=== PATIENT | male | born 1935 | race Caucasian/White ===

== ENCOUNTER 2016-10-22 17:05 | Inpatient (IN) | payer OTHER, MEDICARE ==
[~2016-10-22] VITALS: Ht 182.9 cm; Wt 83.7 kg
[~2016-10-22 17:05] MED LIST: ATORVASTATIN CA40 MG PO; CILOSTAZOL100 MG PO; CILOXAN 0.50 GTT/1 B OPH; DIGOX0.125 MG PO; DONEPEZIL HYDRO10 MG PO; FISH OIL1000 MG; FLU VACCINE 0.0.5 ML IM; LOSARTAN POTAS100 MG PO; METOPROLOL SUC100 MG PO; TAMSULOSIN HYD0.4 MG PO; VITAMIN D1000 IU PO; XARELTO20 MG PO
--- NOTE | 2016-10-22 17:20 | NUR ---
80 YEAR OLD MALE BIBA FROM HOME WITH . PER PT HAS DIAGNOSIS OF ALZHEIMER AND DEMENTIA, BASELINE NONVERBAL AND NONAMBULATORY. PT REPORTS PT HAS BEEN INCREASINGLY ALTERED AND VISITING NURSE SUSPECTS UTI. PT ALSO REPORTS FREQUENT FALLS AND SHE DOESN'T FEEL PT IS SAFE AT HOME ANYMORE. PT AWAITING EVALUATION. EKG ORDERED D/T HX OF A. FIB AND PACEMAKER.
[2016-10-22 18:01] LABS: ABSOLUTE BASOPHIL COUNT 0.1 /CUMM (0.0-0.2); ABSOLUTE EOSINOPHIL COUNT 0.1 /CUMM (0.0-0.7); ABSOLUTE GRANULOCYTE CT 3.9 /CUMM (1.4-6.5); ABSOLUTE LYMPH COUNT 3.4 /CUMM (1.2-3.4); ABSOLUTE MONOCYTE COUNT 0.4 /CUMM (0.10-0.60); BASOPHIL % 0.7 % (0.0-2.0); EOSINOPHIL % 1.6 % (0-5); GRANULOCYTE % 49.5 % (42.2-75.2); HEMATOCRIT 39.5 % (42-52); MEAN CORPUSCULAR HGB 31.5 PG (27.0-31.0); MEAN CORPUSCULAR HGB CONC 33.6 G/DL (33.0-37.0); MEAN PLATELET VOLUME 7.3 FL (7.4-10.4); PLATELET COUNT 203 /CUMM (130-400); RBC DISTRIBUTION WIDTH 13.8 % (11.5-14.5)
--- NOTE | 2016-10-22 18:18 | NUR ---
LABS OBTAINED AND SENT (LAV,SST,EXTRA BLUE AND EXTRA RIDDLE.) PT CHANGED AND STRAIGHT CATHED, URINE SENT. EKG COMPLETED. PT REPOSITIONED FOR COMFORT.
--- NOTE | 2016-10-22 18:57 | CT SCAN REPORT ---
EXAMINATION: CT HEAD WITHOUT CONTRAST CLINICAL INFORMATION: Acute mental status change. COMPARISON: CT exams of the brain done 05/12/2014 and 08/10/2010. TECHNIQUE: Contiguous axial imaging was performed from the skull base to vertex without intravenous administration of contrast. DLP: 601 mGy-cm FINDINGS: There is no evidence of acute intracranial hemorrhage or territorial infarction. No abnormal mass effect or midline shift is seen. Hernandez to white matter differentiation is well preserved. No extra-axial fluid collections are identified. Enlarged ventricles are concordant with the deepened sulci consistent with cerebral atrophy as previously described. There is also deep white matter hypoattenuation in this is attributed to microvascular disease. Left lens has been extracted. There is no abnormal attenuation within the brain parenchyma. The osseous structures and soft tissues are normal. The mastoid air cells and visualized portions of the paranasal sinuses are well aerated. IMPRESSION: No acute intracranial pathology. Cerebral atrophy. Small vessel disease as before.
--- NOTE | 2016-10-22 19:01 | RADIOLOGY REPORT ---
EXAMINATION: XR PORTABLE CHEST CLINICAL INFORMATION: Altered mental status COMPARISON: CT from 02/22/2015. Radiograph report 05/12/2014. TECHNIQUE: Portable AP view of the chest was obtained. FINDINGS: There is a right chest wall single-lead pacer with lead overlying the right ventricle. There is persistent elevation of the left hemidiaphragm. Patchy left basilar opacity is noted. The right lung is clear. No pneumothorax. The cardiomediastinal silhouette is unchanged, with a calcified aorta. No acute osseous abnormality. IMPRESSION: Elevated left hemidiaphragm with associated left basilar opacity. This may be chronic. The lungs are otherwise clear.
--- NOTE | 2016-10-22 19:14 | ED GENERAL ADULT ---
History of Present Illness General Chief Complaint: Altered Mental Status Stated Complaint: BIBA WITH ALTERED MENTAL STATUS Source: family, old records Exam Limitations: clinical condition, dementia Vital Signs & Intake/Output Vital Signs & Intake/Output Vital Signs Date Time Temp Pulse Resp B/P Pulse O2 O2 Flow FiO2 Ox Delivery Rate 10/22 2017 98.0 83 18 136/90 98 10/22 1809 95 Room Air Room Air 10/22 1716 97.4 69 18 125/94 95 Room Air Room Air Allergies Coded Allergies: NO KNOWN ALLERGIES (10/22/16) Reconcile Medications Atorvastatin Calcium 40 MG TABLET 1 TAB PO DAILY CHOLESTEROL (Reported) Cilostazol 100 MG TABLET 1 TAB PO BID BLOOD FLOW (Reported) Digoxin 125 MCG TABLET 1 TAB PO DAILY HEART (Reported) Donepezil HCl 10 MG TABLET 1 TAB PO DAILY MEMORY (Reported) Losartan Potassium 50 MG TABLET 1 TAB PO DAILY HEART/BP (Reported) Metoprolol Succinate 100 MG TAB.ER.24H 1 TAB PO DAILY HEART/BP (Reported) Rivaroxaban (Xarelto) 20 MG TABLET 1 TAB PO DAILY BLOOD THINNER (Reported) with food Tamsulosin HCl 0.4 MG CAP.ER.24H 1 CAP PO DAILY PROSTATE (Reported) Triage Note: 80 YEAR OLD MALE BIBA FROM HOME WITH . PER PT HAS DIAGNOSIS OF ALZHEIMER AND DEMENTIA, BASELINE NONVERBAL AND NONAMBULATORY. PT REPORTS PT HAS BEEN INCREASINGLY ALTERED AND VISITING NURSE SUSPECTS UTI. PT ALSO REPORTS FREQUENT FALLS AND SHE DOESN'T FEEL PT IS SAFE AT HOME ANYMORE. PT AWAITING EVALUATION. EKG ORDERED D/T HX OF A. FIB AND PACEMAKER. Triage Nurses Notes Reviewed? yes HPI: Patient lives at home with his who is his primary caregiver. Patient has Alzheimer's dementia. Over the past 2 weeks there has been an acute decline in his mental status. Per the past 2 days he would not even sit up in bed to attempt to get out of bed. He has had decreased appetite. Very dark and foul odorous. There have been no fevers. There has been no vomiting. His has not noticed any coughing. Patient was brought in for evaluation. Patient is not able to offer any history. Past History Travel History Traveled to [place] past 21 day No Medical History Any Pertinent Medical History? see below for history Neurological: Alzheimer's disease, dementia Cardiovascular: AFIB, hypertension, PACEMAKER Surgical History Surgical History: non-contributory Psychosocial History Who do you live with Spouse What is your primary language Nauruan Tobacco Use: Never used Family History Hx Contributory? No Review of Systems Review of Systems Constitutional: Reports: see HPI. Genitourinary: Reports: see HPI. Physical Exam Physical Exam General Appearance: well developed/nourished, awake, moderate distress Head: atraumatic, normal appearance Eyes: Bilateral: PERRL, EOMI. Ears, Nose, Throat: normal pharynx, normal ENT inspection, DRY MUCOSA Neck: normal inspection, supple, full range of motion Respiratory: normal breath sounds, chest non-tender, no respiratory distress, lungs clear Cardiovascular: regular rate/rhythm, normal peripheral pulses Gastrointestinal: normal bowel sounds, soft, non-tender, no organomegaly Back: normal inspection, normal range of motion Extremities: normal inspection, normal capillary refill, normal range of motion, no edema Neurologic/Psych: WILL OPEN HIS EYES TO COMMAND BUT DOES NOT FOLLOW ANY OTHER COMMANDS. Skin: intact, normal color, warm/dry Lymphatic: no anterior cervical justin Core Measures ACS in differential dx? Yes ASA ordered for poss ACS? Yes-ordered CVA/TIA Diagnosis: No Severe Sepsis Present: No Septic Shock Present: No Progress Differential Diagnoses I considered the following diagnoses in my evaluation of the patient: [UTI, pneumonia, electrolyte abnormality, AMI] Plan of Care: Orders Procedure Date/time Status Regular Diet 10/23 B Active Saline Lock 10/22 2117 Active Misc Message 10/22 2117 Active ED Holding Orders 10/22 2117 Active Vital Signs 10/22 2117 Active Activity/Ambulation 10/22 2117 Active Code Status 10/22 2117 Active Patient Data 10/22 2036 Active Admit to inpatient 10/22 2025 Active Add-on Test (ER Only) 10/22 1858 Active Add-on Test (ER Only) 10/22 1857 Active Saline Lock 10/22 1825 Active CULTURE,URINE 10/22 1825 Active URINE DRUG SCREEN FOR ER ONLY 10/22 182 Complete Intake & Output 10/22 1807 Active THYROID STIMULATING HORMONE 10/22 1752 Complete TROPONIN LEVEL 10/22 1752 Complete T3 UPTAKE (THYROXINE BIND CAP) 10/22 1752 Complete THYROXINE 10/22 1752 Complete ETHANOL 10/22 1752 Complete Straight Cath 10/22 1722 Active URINALYSIS 10/22 1721 Complete COMPREHENSIVE METABOLIC PANEL 10/22 1721 Complete CBC WITHOUT DIFFERENTIAL 10/22 172 Complete EKG 10/22 172 Active Current Medications Sig/Darnell Start time Last Medication Dose Stop Time Status Admin Sodium Chloride 1,000 ML .Q10H 10/22 2130 AC (Normal Saline 0.9%) Laboratory Tests 10/22/16 182: Troponin I Cancelled, TSH Cancelled, Thyroxine (T4) Cancelled, Thyroxine Binding Indx Cancelled, Serum Alcohol Cancelled 10/22/16 181: Urine Opiates Screen < 100.00, Methadone Screen < 40, Barbiturate Screen < 60, Ur Phencyclidine Scrn < 6.00, Amphetamines Screen < 100, U Benzodiazepines Scrn < 85, Urine Cocaine Screen < 50, Urine Cannabis Screen < 5.00, Urinalysis LIGHT H, Urine Color ABNER, Urine Clarity HAZY H, Urine pH 6.0, Ur Specific Harcourt 1.010, Urine Protein TRACE H, Urine Ketones NEG, Urine Nitrite NEG, Urine Bilirubin NEG, Urine Urobilinogen 1.0, Ur Leukocyte Esterase NEG, Ur Microscopic SEDIMENT EXAMINED, Urine RBC 25-50 H, Urine Bacteria MOD H, Urine Hemoglobin LARGE H, Urine Glucose NEG 10/22/16 175: Anion Gap 7, Estimated GFR > 60, BUN/Creatinine Ratio 22.5, Glucose 97, Calcium 9.3, Total Bilirubin 0.8, AST 19, ALT 34, Alkaline Phosphatase 85, Troponin I 0.11 *H, Total Protein 6.0 L, Albumin 3.4 L, Globulin 2.6, Albumin/Globulin Ratio 1.3, TSH 2.110, Thyroxine (T4) 6.0, Thyroxine Binding Indx 39.2, CBC w Diff NO MAN DIFF REQ, RBC 4.20 L, MCV 94.0, MCH 31.5 H, RDW 13.8, MPV 7.3 L, Gran % 49.5, Lymphocytes % 42.7, Monocytes % 5.5, Eosinophils % 1.6, Basophils % 0.7, Absolute Granulocytes 3.9, Absolute Lymphocytes 3.4, Absolute Monocytes 0.4 , Absolute Eosinophils 0.1, Absolute Basophils 0.1, PUBS MCHC 33.6, Serum Alcohol < 10.0 Microbiology 10/23 1815 URINE ROUT: Urine Culture - RECD Diagnostic Imaging: Viewed by Me: Radiology Read, CT Scan. Discussed w/RAD: Radiology Read, CT Scan. Radiology Impression: PATIENT: KARL BETH PRESENT AGE: 80 PATIENT ACCOUNT NO: [id number] : 37 LOCATION: [facility] ORDERING PHYSICIAN: AMANDA BOLANOS MD SERVICE DATE: 10/22/16 EXAM TYPE: CAT - CT HEAD WO IV CONTRAST EXAMINATION: CT HEAD WITHOUT CONTRAST CLINICAL INFORMATION: Acute mental status change. COMPARISON: CT exams of the brain done 05/12/2014 and 08/10/2010. TECHNIQUE: Contiguous axial imaging was performed from the skull base to vertex without intravenous administration of contrast. DLP: 601 mGy-cm FINDINGS: There is no evidence of acute intracranial hemorrhage or territorial infarction. No abnormal mass effect or midline shift is seen. Hernandez to white matter differentiation is well preserved. No extra-axial fluid collections are identified. Enlarged ventricles are concordant with the deepened sulci consistent with cerebral atrophy as previously described. There is also deep white matter hypoattenuation in this is attributed to microvascular disease. Left lens has been extracted. There is no abnormal attenuation within the brain parenchyma. The osseous structures and soft tissues are normal. The mastoid air cells and visualized portions of the paranasal sinuses are well aerated. IMPRESSION: No acute intracranial pathology. Cerebral atrophy. Small vessel disease as before. DICTATED BY: JOSE CURIEL MD DATE/TIME DICTATED: 10/22/161847 EDUCATION PROFESSIONAL:ARIK DATE/TIME TRANSCRIBED:10/22/161847 CONFIDENTIAL, DO NOT COPY WITHOUT APPROPRIATE AUTHORIZATION. <Electronically signed in Other Vendor System> SIGNED BY: JOSE CURIEL MD 10/22/16 277 CXR Impression: PATIENT: KARL BETH PRESENT AGE: 80 PATIENT ACCOUNT NO: [id number] : 37 LOCATION: [facility] ORDERING PHYSICIAN: AMANDA BOLANOS MD SERVICE DATE: 10/22/16 EXAM TYPE: RAD - XRY-PORTABLE CHEST XRAY EXAMINATION: XR PORTABLE CHEST CLINICAL INFORMATION: Altered mental status COMPARISON: CT from 02/22/2015. Radiograph report 2013. TECHNIQUE: Portable AP view of the chest was obtained. FINDINGS: There is a right chest wall single-lead pacer with lead overlying the right ventricle. There is persistent elevation of the left hemidiaphragm. Patchy left basilar opacity is noted. The right lung is clear. No pneumothorax. The cardiomediastinal silhouette is unchanged, with a calcified aorta. No acute osseous abnormality. IMPRESSION: Elevated left hemidiaphragm with associated left basilar opacity. This may be chronic. The lungs are otherwise clear. DICTATED BY: ADELE HOGAN MD DATE/TIME DICTATED:10/22/161852 EDUCATION PROFESSIONAL:ARIK DATE/TIME TRANSCRIBED:10/22/161852 CONFIDENTIAL, DO NOT COPY WITHOUT APPROPRIATE AUTHORIZATION. <Electronically signed in Other Vendor System> SIGNED BY: EDISON BAY,ADELE 10/22/16 190 Initial ED EKG: pacemaker rhythm Prior EKG: unchanged Rhythm Strip: PACED Departure Departure Disposition: STILL A PATIENT Condition: Guarded Clinical Impression Primary Impression: Elevated troponin Secondary Impressions: Acute delirium, Hypokalemia Referrals: ESTHELA BAY,MARCIA Pierre (PCP/Family) Departure Forms: Customer Survey General Discharge Information Admission Note Spoke With: ELEUTERIO REYES MD Documentation of Exam: Documentation of any treatments & extenuating circumstances including Concerns Regarding Discharge (functional status, medication knowledge or non-compliance, living conditions, etc.) that warrant an admission rather than observation: [ Telemetry monitoring with serial enzymes, cardiology consultation, PT evaluation ] Critical Care Note Critical Care Note Critical Care Time: mins: (30 MIN)
--- NOTE | 2016-10-22 19:48 | NUR ---
DR. CARTER TO BEDSIDE TO DISCUSS RESULTS AND POC.
--- NOTE | 2016-10-22 19:51 | NUR ---
CRITICAL TEST RESULTS [id number] KIRITKARL 80 M TESTS AND RESULTS: 0.11 Results received and read back by: DAVIDA MILLAN Results received date and time: 10/22/161950 The following provider was notified of the results, and read the results back: DR. CARTER Notified date and time: 10/22/16 at 1951
--- NOTE | 2016-10-22 20:19 | NUR ---
IV ACCESS ESTABLISHED BY THIS RN LH #[id number], WRAPPED WITH KERLEX.
[2016-10-22] MEDS ORDERED: XARELTO20 M2 PO (20:23)
[2016-10-22] MEDS ORDERED: DIGOXIN125 MCG PO (20:23)
[2016-10-22] MEDS ORDERED: CILOSTAZOL100 M1 PO (20:23)
[2016-10-22] MEDS ORDERED: LOSARTAN POTASS50 M1 PO (20:23)
[2016-10-22] MEDS ORDERED: ATORVASTATIN CA40 M1 PO (20:24)
[2016-10-22] MEDS ORDERED: DONEPEZIL HCL10 M1 PO (20:24)
[2016-10-22] MEDS ORDERED: METOPROLOL SUC100 M2 PO (20:24)
[2016-10-22] MEDS ORDERED: TAMSULOSIN HCL0.4 M1 PO (20:24)
--- NOTE | 2016-10-22 20:42 | NUR ---
PT MEDICATED WITH NS LITER #1 INFUSING, 40MEG KLOR PO, AND 325MG ASA CRUSHED IN SPOONFUL OF [place]KE PER EMAR. FAMILY AT BEDSIDE, FEEDING PT.
--- NOTE | 2016-10-22 21:14 | NUR ---
HOUSE STAFF TO BEDSIDE TO EVALUATE PT.
--- NOTE | 2016-10-22 21:27 | NUR ---
PT GOING TO ROOM [id number]
--- NOTE | 2016-10-22 21:34 | History & Physical ---
AZUCENA RUIZ MD 10/22/162132: General Information and HPI MD Statement: I have seen and personally examined KARL AMBRIZ and documented this H&P. The patient is a 80 year old M who presented with a patient stated chief complaint of altered mental status. Source of Information: family, old records Exam Limitations: dementia, poor historian History of Present Illness: Mr. Ambriz is a pleasantly demented 80 year old [place] male with PMH HTN, HLD, atrial fibrillation s/p PPM implantation in 2007, CAD s/p stenting, claudication secondary to peripheral vascular disease and Alzheimer's dementia ( non-verbal at baseline) who was brought in to [facility] via ambulance due to increased altered mental status. Due to clinical condition and Alzheimer's dementia, history is obtained from his and [id number] who are at bedside. According to his , Mr. Ambriz has been mumbling less, more altered than normal and has been staring off into space instead of participating in visual tracking. This is associated with three falls over the last fifteen days without head trauma. Patient is noted to have been leaning more to the right side of his body and does not lift his right leg to move. There is also a report of darkening of patient's urine to a brown color, concerning his visiting nurse for hematuria; he has not decreased his oral intake of fluids over this time frame. Family denies any fever, chills, recent URI, cough, vomiting, coughing with eating or drooping of the face. They did admit to chronic syncope which has been going on for about 1 year, where Karl will be sitting and suddenly pass out. At that time, shaking and talking to him will not wake him up and after about 15 -20 minutes, he will return to his baseline with no issues. They also believe that his pacemaker has been firing frequently as Karl has random jerks throughout the day. Social history is significant for prior tobacco abuse, though patient quit about 35 years ago. There is no report of alcohol or illicit drug use. Patient sees Dr. Chin as his PCP who manages his Alzheimer's and Dr. Waller as his assisted living executive director. Past surgical history is significant for pacemaker placement on by Dr. Jacobo. He has also had left leg surgery for his PVD. He requires help in all his ADLs and IADLs. Allergies/Medications Allergies: Coded Allergies: NO KNOWN ALLERGIES (10/22/16) Home Med list Atorvastatin Calcium 40 MG TABLET 1 TAB PO DAILY CHOLESTEROL (Reported) Cilostazol 100 MG TABLET 1 TAB PO BID BLOOD FLOW (Reported) Digoxin 125 MCG TABLET 1 TAB PO DAILY HEART (Reported) Donepezil HCl 10 MG TABLET 1 TAB PO DAILY MEMORY (Reported) Losartan Potassium 50 MG TABLET 1 TAB PO DAILY HEART/BP (Reported) Metoprolol Succinate 100 MG TAB.ER.24H 1 TAB PO DAILY HEART/BP (Reported) Rivaroxaban (Xarelto) 20 MG TABLET 1 TAB PO DAILY BLOOD THINNER (Reported) with food Tamsulosin HCl 0.4 MG CAP.ER.24H 1 CAP PO DAILY PROSTATE (Reported) Compliance With Home Meds: UNKNOWN Past History Travel History [facility] past [facility] day No Medical History Neurological: Alzheimer's disease, dementia Cardiovascular: AFIB, hypertension, PACEMAKER Surgical History Surgical History: non-contributory Past Family/Social History Psychosocial History Where do you live? Home Who Do You Live With? spouse Services at Home: Nursing Primary Language: [place]ian Smoking Status: Former Smoker ETOH Use: denies use Illicit Drug Use: denies illicit drug use Living Will? yes Functional Ability ADLs Needs Assist: dressing, eating, toileting, bathing. Ambulation: non-ambulatory IADLs Needs Assist: shopping, housework, finances, food prep, telephone, transportation, medication admin. Sexual History Sexually Active No Employment History Employment Retired Review of Systems Review of Systems Constitutional: Reports: malaise, weakness. Denies: chills, diaphoresis, fever. EENTM: Denies: visual changes (Baseline macular degeneration), nasal congestion, epistaxis. Cardiovascular: Reports: see HPI. Respiratory: Denies: cough, hemoptysis, wheezing. GI: Denies: bloating, vomiting. Genitourinary: Reports: hematuria (Possible). Skin: Denies: rash. Neurological/Psychological: Reports: confusion, dementia, unable to move lower ext (Right leg), weakness. Denies: petit mal seizures, tremors, unable to move upper ext. Hematologic/Endocrine: Denies: bleeding. Immunologic/Allergic: Denies: splenectomy. All Other Systems: Reviewed and Negative Exam & Diagnostic Data Last 24 Hrs of Vital Signs/I&O Vital Signs Date Time Temp Pulse Resp B/P Pulse O2 O2 Flow FiO2 Ox Delivery Rate 10/22 2145 97.2 65 16 128/78 97 Room Air 10/22 2017 98.0 83 18 136/90 98 10/22 1809 95 Room Air Room Air 10/22 1716 97.4 69 18 125/94 95 Room Air Room Air Physical Exam General Appearance No Acute Distress, AAOx0, non-verbal, unable to follow commands Skin No Significant Lesion HEENT Atraumatic, PERRLA, EOMI, Mucous Membr. moist/pink Neck Supple, +2 Carotid Pulse wo Bruit Lymphatic Cervical nl Cardiovascular Regular Rate, Normal S1, Normal S2 Lungs Normal Air Movement Abdomen Normal Bowel Sounds, Soft, No tenderness, specifically no suprapubic tenderness Neurological Normal Tone, Unable to participate in neurological exam Extremities No Clubbing, No Cyanosis, Normal Pulses, No Tenderness/Swelling, minimal bilateral LE edema Vascular Pulses Symmetrical Last 24 Hrs of Labs/Onel: Laboratory Tests 10/22/16 182: Troponin I Cancelled, TSH Cancelled, Thyroxine (T4) Cancelled, Thyroxine Binding Indx Cancelled, Serum Alcohol Cancelled 10/22/16 181: Urine Opiates Screen < 100.00, Methadone Screen < 40, Barbiturate Screen < 60, Ur Phencyclidine Scrn < 6.00, Amphetamines Screen < 100, U Benzodiazepines Scrn < 85, Urine Cocaine Screen < 50, Urine Cannabis Screen < 5.00, Urinalysis LIGHT H, Urine Color ABNER, Urine Clarity HAZY H, Urine pH 6.0, Ur Specific [place] 1.010, Urine Protein TRACE H, Urine Ketones NEG, Urine Nitrite NEG, Urine Bilirubin NEG, Urine Urobilinogen 1.0, Ur Leukocyte Esterase NEG, Ur Microscopic SEDIMENT EXAMINED, Urine RBC 25-50 H, Urine Bacteria MOD H, Urine Hemoglobin LARGE H, Urine Glucose NEG 10/22/16 1752: Anion Gap 7, Estimated GFR > 60, BUN/Creatinine Ratio 22.5, Glucose 97, Calcium 9.3, Total Bilirubin 0.8, AST 19, ALT 34, Alkaline Phosphatase 85, Troponin I 0.11 *H, Total Protein 6.0 L, Albumin 3.4 L, Globulin 2.6, Albumin/Globulin Ratio 1.3, TSH 2.110, Thyroxine (T4) 6.0, Thyroxine Binding Indx 39.2, CBC w Diff NO MAN DIFF REQ, RBC 4.20 L, MCV 94.0, MCH 31.5 H, RDW 13.8, MPV 7.3 L, Gran % 49.5, Lymphocytes % 42.7, Monocytes % 5.5, Eosinophils % 1.6, Basophils % 0.7, Absolute Granulocytes 3.9, Absolute Lymphocytes 3.4, Absolute Monocytes 0.4 , Absolute Eosinophils 0.1, Absolute Basophils 0.1, PUBS MCHC 33.6, Serum Alcohol < 10.0 Microbiology 10/23 1815 URINE ROUT: Urine Culture - RECD Diagnostic Data EKG Results Ventricular paced rhythm, HR 71 CXR Results IMPRESSION: Elevated left hemidiaphragm with associated left basilar opacity. This may be chronic. The lungs are otherwise clear. Other Results Head CT: IMPRESSION: No acute intracranial pathology. Cerebral atrophy. Small vessel disease as before. Assessment/Plan Assessment: Mr. Ambriz is a pleasantly demented 80 year old [place] male with PMH HTN, HLD, atrial fibrillation s/p PPM implantation in 2007, CAD s/p stenting, claudication secondary to peripheral vascular disease and Alzheimer's dementia ( non-verbal at baseline) who was brought in to [facility] via ambulance due to increased altered mental status. Several complaints on presentation include altered mental status, frequent falls over the last 15 days without head trauma, dark urine, right-sided preference with decreased mobility of the right lower extremity and history of syncopal spells that last 15-20 minutes. In the ED: Vital signs showed T 97.4, HR 69, RR 18, BP 125/94 and O2 saturation of 95% on room air. Labs were significant for normocytic anemia to 13.3/39.5, K 3.3, Cl 108, troponin 0.11 and normal thyroid panel. Utox was negative. UA showed hazy clarity, trace protein, 25-50 RBCs, moderate bacteria and large Hgb. CXR showed elevated left hemidiaphragm with associated left basilar opacity. This may be chronic. The lungs are otherwise clear. Head CT showed no acute intracranial pathology. Cerebral atrophy. Small vessel disease as before. Patient is admitted to the telemetry floor and the following is the management: 1. Elevated troponins in the setting of atrial fibrillation with PPM * Likely NSTEMI vs supply-demand mismatch * Continuous telemetry monitoring * Trend troponins/EKGs, next at 12 AM and 6 AM * Cardio consult in AM with Dr. Waller, patient's assisted living executive director * Resume all home cardiac medications, including Xarelto 20 mg PO daily, losartan 50 mg PO daily, digozin 0.125 mg PO daily and lipitor 40 mg PO daily * Hold off on echo as patient may have had recent echocardiogram, discuss with cardiology need for echo * F/U proBNP 2. Dark urine with blood * UTI vs nephrolithiasis vs BPH * UA showed 25-50 RBCs, large hgb * Will obtain CT abdomen without IV contrast to look for stones or other causes of heamturia * Hold off on hadley and traumatic straight caths * Monitor urine output * Continue flomax 0.4 mg PO daily 3. Syncope * Family reported this has been occuring for about 1 year * DDx includes arrhythmia vs orthostatic hypotention * Patient had an EEG 12/22/15 that showed no epileptiform activity (performed due to syncopal events as per family) * Continuous telemetry monitoring * Orthostatics (laying and sitting, patient cannot stand) * Discuss with cardio need for echocardiogram * PT eval for possible placement 4. Hypokalemia * K 3.3 on admission without overt EKG changes * Repleted with 40 meq PO x 1 Klor * Follow up repeat BEP in AM 5. HTN, HLD, CAD s/p stenting * Monitor vital signs Q shift * Continue beta yemi, losartan and lipitor daily 6. PVD * Continue cilostazol 100 mg PO BID 7. Alzheimer's * Continue donepezil 10 mg PO daily DNR/DNI Diet: Regular Mild pain pathway DVTP: Xarelto As Ranked By This Provider Problem List: 1. Dementia 2. Elevated troponin 3. Hypokalemia 4. Pacemaker 5. Syncope 6. Hematuria Core Measures/Miscellaneous Acute Coronary Syndrome ACS Diagnosis: Yes ASA W/I 24hr of admit Yes Beta-Yemi W/I 24hrs Yes LDL assessed W/I 24 hrs Yes Currently on Statin Yes Cerebrovascular Accident CVA/TIA Diagnosis: No Congestive Heart Failure CHF Diagnosis: No Venous Thromboembolism VTE Risk Factors: Acute medical illness, Age > 40, Immobility, paresis [facility] prophylaxis d/t: No contraindications No VTE Pharm Prophylaxis d/t: No contraindications VTE Diagnosis: No VTE Type: NONE VTE Confirmed by (Test): NONE Severe Sepsis Severe Sepsis Present: No Septic Shock Septic Shock Present: No Miscellaneous Documentation Attending Case Discussed With: ELEUTERIO REYES MD Primary Care Physician: MARCIA CHIN MD Patient sees these Specialists Dr. Waller, cardiology Level of Patient Care: Telemetry JEREMIAS SWARTZ MD 10/22/16 2224: Resident Review Statement Resident Statement: examined this patient, discussed with international trade compliance manager, agreed with international trade compliance manager Other Findings: 80 Y/O M with a PMH of CAD s/p stents, Afib on Digoxin and Xarelto, HTN, HLD, PVD who presents to the ED with c/o increase in AMS. The patient is nonverbal and nonambulatory at baseline. Most of the history was obtained from the , who was present at bedside during the interview. She reports that a visiting nurse came to see the patient today and found him to be more altered than at baseline. Also while changing his diaper, it was found that he had dark brown urine. The visiting nurse stated that he might be having a urinary tract infection causing alteration of mental status and therefore needed to be sent to the hospital. states that he has been getting increasingly weak over the last 2 weeks. Previously she was able to move him around with the help of her son. But now, since her son is also sick, she is unable to handle this by herself. He fell around 2 weeks ago, when he rolled over from his bed and fell to the floor. Since then, his resports that he has been more weak and lethargic than usual. Previously, he was able to follow commands, which he is now unable to do. She reports that around 3 months ago, he was having episodes where he would be sitting at the dining table and pass out for a period of 15 minutes or so before coming to spontaneously. This has been evaluated in the past when EEG was normal. s also noted that he is now leaning more towards his right when he walks and is unable to move his right foot. [id number], was also present at bedside, stated that she felt that his pacemaker was discharging because she would see him jerking multiple times a day. No reported fevers, chills, upper respiratory infection, cough. Vitals: 97.498.0/ 6983/ 18/ 125/20179/90/ 9598 % Exam: orientation cannot be assessed, BCTA,no murmurs heard, abdomen soft nontender, no pedal edema noted Labs: potassium: 3.3, troponin: 0.11, U tox negative, urinalysis shows large hemoglobin, moderate bacteria, negative leukocyte esterase and nitrite. Imaging: Chest x-ray: Left basilar obesity (? Chronic), otherwise clear Head CT: Negative intracranial pathology. Cerebral Atrophy. Small vessel disease. Problem list: * elevated troponin secondary to discharge from pacemaker versus demand supply mismatch secondary to underlying infection * hypokalemia * hematuria secondary to UTI versus nephrolithiasis * syncope secondary to arrhythmias versus orthostatic hypotension * CAD status post stenting * Atrial fibrillation on digoxin and Xarelto * Hypertension * Hyperlipidemia * Peripheral vascular disease currently on Cilostazol Plan: * Admit to telemetry * Trend troponins and EKG * Repeat BEP in a.m. for potassium levels * cardiology consult for possible interrogation of pacemaker in a.m.. * Please determine the need for an echo in the morning (patient sees Dr. Waller is an outpatient and may have records). * CAT scan of the abdomen and pelvis to r/o nephrolithiasis vs BPH causing hematuria * continue all other home medications * DVT prophylaxis: Xarelto * Pain pathway: Tylenol when necessary * CODE STATUS: DNR/DNI. The does not want any aggressive measures including pressors. ELEUTERIO REYES 10/22/16 2342: Attending MD Review Statement Attending Statement Attending MD Statement: examined this patient, discuss w/resident/PA/[employer], agreed w/resident/PA/[employer], discussed with family, reviewed EMR data (avail), reviewed images, amended to note Attending Assessment/Plan: C: AMS pmh: CAD S/p stent ,A fib s/p Pacemaker, HTN, HLD, PVD s/p surgery, Alzheimer's dementia Patient was brought in by Family through EMS for worsening mentation. Patient lives at home with his , she is his primary caregiver along with Son's help. Over the past 2 weeks, family has noticed acute decline in his mental status, less responsive, slipped from bed and had a fall 15 days back, gait changes leaning towards right side, right lower extremity weakness, on and off leg swellings, intermittent jerky movements. At baseline patient is nonverbal, legally blind with macular degeneration. Before October 10 , patient was following some instructions, ambulating with the help of walker with 's help. In last 2 days he would not even sit up in bed to attempt to get out of bed, decreased appetite. Family also noticed very dark and foul odorous urine in the diaper, 3 times. At times patient appeared in pain while passing urine. Family denied fever, chills, nausea, vomiting, ROS limited because patient does not provide details. When patient's condition started deteriorating 15 days back, they requested for a home health nurse, who was visiting them today and found dark- colored urine, suggesting to go to ER for possible urine infection causing altered mental status. Of note patient has been getting multiple episodes of passing out over the years, last episode was 3 months back. Patient needs assistance in feeding, eats full diet, no choking. Vitals: Afebrile, pulse in 60s, RR, BP, O2 saturation in acceptable range. On examination: Patient does not follow instructions, nonverbal, lying in position, no pedal edema, peripheral pulses perfusion normal. No JVD, neck supple, no lymphadenopathy, mucosa dry, pupils equal and reactive bilaterally. Abdomen: Soft, NT, ND, bowel sounds present. RS: clear to auscultate bilaterally. CVS: Irregular. No pressure ulcers. Neuro exam not possible as patient does not follow any instructions. No obvious skin rashes or inflammations. Labs: CBC unremarkable, potassium 3.3 otherwise BMP, LFT unremarkable troponin 0.11, TSH 2.11, urine hazy, trace protein, 50 RBC, moderate bacteria, large hemoglobin. U tox unremarkable. Imaging CT head: No acute intracranial pathology. Cerebral atrophy. Small vessel disease as before. CXR: Elevated left hemidiaphragm with associated left basilar opacity. This may be chronic. The lungs are otherwise clear. EKG paced rhythm A and P #1 encephalopathy: delirium versus worsening of dementia. Patient afebrile, no leukocytosis, vitals stable, no evidence of infection currently, pain is another possibility which may be precipitating delirium, obtain urine culture, CT abdomen without contrast to rule out any calculus, gentle hydration, stool softeners and bowel regimen. Obtain proBNP, digoxin level, CPK. #2 elevated troponin: Patient has dementia, does not complain of chest pain, patient's family has been noticing intermittent jerky movements as is getting ? shocked, previous note mentions about ventricular single-lead pacer, no history of defibrillator at this point. Admit on telemetry, continuous telemetry monitoring, cardiology consult, serial EKG, trend troponin, ?interrogation of device, ? 2-D echo, according to assisted living executive director. Continue aspirin and beta yemi continue Xeralto #3 multiple syncopal episodes in the past: Last episode 3 months back, patient was evaluated with EEG in the past, again telemetry monitoring will benefit, ? 2 -D echo. Obtain orthostatic vitals, may need to readjust medications #4 dark colored urine at home, patient had hemoglobin and RBC the urine sample in ER, may have been related to trauma with straight cath but patient was having symptoms at home. Patient is on anticoagulation. Obtain CT abdomen and pelvis to rule out any calculus or any other pathology. Urine culture. #5 continue all his medications for CAD, HTN, A. fib, HLD, PVD, Alzheimer's with metoprolol, digoxin, losartan, tamsulosin, cilostazol, Xeralto, donepezil, atorvastatin. #6 PT evaluation, case management consult for rehabilitation placement. Discussed goals of care with family, is realistic about worsening condition , wants to pursue investigations if beneficial for improvement, wants to make him more comfortable, DNR, DNI
--- NOTE | 2016-10-22 21:50 | NUR ---
REPORT CALLED TO FAIZAN OLIVEIRA. DISTRIBUTION CALLED FOR PT TRANSPORT.
[2016-10-22 22:40] VITALS: BP 158/80
--- NOTE | 2016-10-22 23:45 | Admission Certification ---
Admission Certification Certification Statement - As attending physician, I certify that at the time of - admission, based on clinical presentation, severity of - symptoms, need for further diagnostic testing and - therapeutic interventions, and risk of adverse outcomes - without in-hospital treatment, in my clinical assessment, - this patient requires an acute hospital stay for a minimum - of two nights or longer. I have also considered psychsocial - factors such as support system, advanced age, financial - issues, cognitive issues, and failed out-patient treatments, - past re-admission history, safety of patient, and lack of - compliance as applicable. Specific rationale supporting this admission is: Encephalopathy, elevated troponins, hematuria
--- NOTE | 2016-10-23 00:47 | CT SCAN REPORT ---
EXAMINATION: CT ABDOMEN AND PELVIS WITHOUT CONTRAST CLINICAL INFORMATION: Benign prostatic hypertrophy versus nephrolithiasis causing hematuria. Hematuria and pain. COMPARISON: No relevant prior imaging available. TECHNIQUE: Multidetector volumetric imaging was performed from the superior aspect of the liver through the pubic symphysis. Sagittal and coronal reformatted images were obtained on the technologist's workstation. DLP: 401.96 mGy-cm FINDINGS: LUNG BASES: There is scarring and/or atelectasis within both lung bases and a small left pleural effusion. The right atrium is enlarged. No pericardial effusion. LIVER, GALLBLADDER, AND BILIARY TREE: There is a small well marginated benign-appearing cystic lesion within the left lobe of liver that measures 1.5 cm in diameter. The unenhanced liver is otherwise grossly unremarkable. The gallbladder is contracted. There is no evidence of intrahepatic or extrahepatic biliary ductal dilatation. PANCREAS: Unremarkable. SPLEEN: Unremarkable. ADRENAL GLANDS: Unremarkable. KIDNEYS AND URETERS: There is mild left hydroureteronephrosis. There is no distal obstructing mass or calcification. No nephrolithiasis. No worrisome perinephric inflammation or collection. Kidneys are grossly symmetric in size. BLADDER: The urinary bladder has a trabeculated surface consistent with pseudodiverticulosis associated with prostatic hypertrophy. The possibility of a urothelial mass cannot be excluded on the basis of this examination due to irregular thickening of the urinary bladder wall. GASTROINTESTINAL TRACT: The stomach and small bowel are unremarkable. The colon and appendix are normal. A moderate volume of stool fills rectum. There is no free intraperitoneal air or fluid. No abnormal inflammatory changes within the mesenteric or retroperitoneal fat. ABDOMINAL WALL: The abdominal wall is grossly intact with exception of a fat-containing left inguinal hernia. LYMPH NODES: There are no pathologically enlarged mesenteric or retroperitoneal lymph nodes. VASCULAR: There is diffuse atheromatous calcification involving the infrarenal abdominal aorta and iliac vessels. There is a fusiform aneurysm of the infrarenal abdominal aorta that measures 3.8 cm in diameter. The unenhanced inferior vena cava is unremarkable. PELVIC VISCERA: The prostate gland is grossly enlarged with a transverse diameter of 6.8 cm. OSSEOUS STRUCTURES: There is no worrisome lytic or blastic osseous lesion. There is multilevel degenerative spondylosis of the lumbar spine. No evidence of acute fracture or subluxation. IMPRESSION: There is asymmetric hydroureteronephrosis of the left kidney with no clear evidence of a distal obstructing mass or stone. The urinary bladder is diffusely thickened and demonstrates a trabeculated appearance consistent with pseudodiverticulosis in the setting of prostatic hypertrophy. The possibility of a urothelial mass cannot be exclude on the basis of this examination. 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 Limited visualization of the intrathoracic structures demonstrates right atrial enlargement.
--- NOTE | 2016-10-23 07:09 | PN- Housestaff ---
LILLIAN BAY,HIRO 10/23/16 0708: Subjective Follow-up For: Altered mental status Dark Urine Tele-Events Since Last Visit: Single pacing 76-81 bpm without any overnight events. Subjective: I saw and examined the patient today morning He is speechless, upon sternal rubbing opened his eyes, starring at the hinkle. Not responding to verbal/painful commands. Review of Systems Constitutional: Reports: see HPI. Objective Last 24 Hrs of Vital Signs/I&O Vital Signs Date Time Temp Pulse Resp B/P Pulse O2 O2 Flow FiO2 Ox Delivery Rate 10/22 2240 97.6 66 20 158/80 98 Room Air 10/22 2145 97.2 65 16 128/78 97 Room Air 10/22 2017 98.0 83 18 136/90 98 10/22 1809 95 Room Air Room Air 10/22 1716 97.4 69 18 125/94 95 Room Air Room Air Intake & Output 10/23 0800 10/23 0000 10/22 1600 Intake Total Output Total 1000 Balance -1000 Output, Urine 1000 Physical Exam General Appearance: Alert, not oriented Skin: No Rashes, No Breakdown HEENT: Atraumatic, PERRLA, EOMI Neck: Supple Cardiovascular: Normal S1, Normal S2, No Murmurs Lungs: Clear to Auscultation, Normal Air Movement Abdomen: Normal Bowel Sounds, Soft, No Tenderness Extremities: No Clubbing, No Cyanosis, No Edema Current Medications: Current Medications Sig/Darnell Start time Last Medication Dose Route Stop Time Status Admin Acetaminophen 650 MG Q6P PRN 10/225 AC PO Aspirin 0 .STK-MED ONE 10/22 2032 DC PO Aspirin 325 MG ONCE ONE 10/22 2029 DC 10/22 PO 10/22 Atorvastatin Calcium 40 MG DAILY 10/22 2156 AC PO Cilostazol 100 MG BID 10/22 2200 AC PO Digoxin 0.125 MG 10/23 1700 AC PO Donepezil HCl 10 MG DAILY 10/23 1000 AC PO Losartan Potassium 50 MG DAILY 10/23 1000 AC PO Metoprolol Succinate 100 MG DAILY 10/23 1000 AC PO Polyethylene Glycol 17 GM DAILY 10/23 1000 AC PO Potassium Chloride 0 .STK-MED ONE 10/22 2032 DC PO Potassium Chloride 40 MEQ ONCE ONE 10/23 1999 DC 10/22 PO 10/22 Rivaroxaban 20 MG 1700 10/23 1700 AC PO Senna/Docusate Sodium 2 TAB DAILY 10/23 1000 AC PO Sodium Chloride 1,000 ML Q13H 10/23 0030 AC 10/23 IV 0030 Sodium Chloride 1,000 ML .Q10H 10/22 2130 DC 10/22 IV 2255 Sodium Chloride 1,000 ML BOLUS ONE 10/22 1930 DC 10/22 IV 10/22 Tamsulosin HCl 0.4 MG DAILY 10/23 1000 AC PO Assessment/Plan Assessment: Patient is a 80 year old [place] male with PMH HTN, HLD, atrial fibrillation s/p PPM implantation in 2007, CAD s/p stenting, claudication secondary to peripheral vascular disease and Alzheimer's dementia (non-verbal at baseline) who was brought in to [place] via ambulance due to increased altered mental status. Several complaints on presentation include altered mental status, frequent falls over the last 15 days without head trauma, dark urine, right-sided preference with decreased mobility of the right lower extremity and history of syncopal spells that last 15-20 minutes. ED Course: Vital signs showed T 97.4, HR 69, RR 18, BP 125/94 and O2 saturation of 95% on room air. Labs were significant for normocytic anemia to 13.3/39.5, K 3.3, Cl 108, troponin 0.11 and normal thyroid panel. Utox was negative. UA showed hazy clarity, trace protein, 25-50 RBCs, moderate bacteria and large Hgb. CXR showed elevated left hemidiaphragm with associated left basilar opacity. This may be chronic. The lungs are otherwise clear. Head CT showed no acute intracranial pathology. Cerebral atrophy. Small vessel disease as before. Patient is admitted to the telemetry floor and the following is the management: Progressive deconditioning with encephalopathy * Patient condition is gradually worsening which was more prononunced in the past 15days, being noncommunicative. * His work up is so far negative, appaerently his general condition is declining. * His is more realistic about the condtion, and if patient condition declines opting to choose STR placement. Elevated troponins in the setting of atrial fibrillation with PPM * Likely NSTEMI vs supply-demand mismatch * Continuous telemetry monitoring * Trend troponins -- 0.11-->0.11-->0.10 with no significant changes in EKG * Cardio consult with Dr. Waller, patient's terminal supervisor * Resume all home cardiac medications, including Xarelto 20 mg PO daily, losartan 50 mg PO daily, digozin 0.125 mg PO daily and lipitor 40 mg PO daily * Hold off on echo as patient may have had recent echocardiogram, discuss with cardiology need for echo * proBNP is 3020 Dark urine with blood * UTI vs nephrolithiasis vs BPH * UA showed 25-50 RBCs, large hgb * CT abdomen & pelvis without IV constrast demonstrated asymmetric hydroureteronephrosis of the left kidney with no clear evidence of a distal obstructing mass or stone. The urinary bladder is diffusely thickened and demonstrates a trabeculated appearance consistent with pseudodiverticulosis in the setting of prostatic hypertrophy. * Patient had clots in his urine overnight, today morning he had bright red blood in urine (still on xarelto). No significant changes in Hb. * Urology consult placed. * Continue flomax 0.4 mg PO daily Syncope * Family reported this has been occuring for about 1 year * Possible arrhythmias. * Patient had an EEG 12/22/15 that showed no epileptiform activity (performed due to syncopal events as per family) * Continuous telemetry monitoring * Orthostatics are negative. * May need for echocardiogram * PT evalated and recommended STR placement Atrial Fibrillation s/p PPM * Continue xarelto 20mg daily * May need pacemaker interrogation Hypokalemia * K 3.3 on admission without overt EKG changes * Repleted with 40 meq PO x 1 Klor * Today its 4.1 - will monitor HTN, HLD, CAD s/p stenting * Monitor vital signs Q shift * Continue beta sadie, losartan and lipitor daily PVD * Continue cilostazol 100 mg PO BID Alzheimer's * Continue donepezil 10 mg PO daily DNR/DNI Diet: Regular Mild pain pathway DVTP: Xarelto Problem List: 1. Dementia 2. Elevated troponin 3. Acute delirium 4. Syncope 5. Hematuria 6. Hypokalemia Pain Ratin Pain Location: n/a Pain Goal: Remain pain free Pain Plan: tylenol prn Tomorrow's Labs & Rationales: cbc to monitor for leukocytosis bep to monitor electrolyte abnormalities causing delirium GARDENIA TRAN 10/23/16 1122: Attending MD Review Statement Attending Statement Attending MD Statement: examined this patient, discuss w/resident/PA/LOGISTICS ADMINISTRATOR, agreed w/resident/PA/LOGISTICS ADMINISTRATOR, discussed with family, reviewed EMR data (avail), discussed with nursing, discussed with case mgmt, reviewed images Attending Assessment/Plan: C: FROYLAN pmh: CAD S/p stent ,A fib s/p Pacemaker, HTN, HLD, PVD s/p surgery, Alzheimer's dementia Patient was brought in by Family through EMS for worsening mentation. Patient lives at home with his , she is his primary caregiver along with Son's help. Over the past 2 weeks, family has noticed acute decline in his mental status, less responsive, slipped from bed and had a fall 15 days back, gait changes leaning towards right side, right lower extremity weakness, on and off leg swellings, intermittent jerky movements. At baseline patient is nonverbal, legally blind with macular degeneration. Before October 10 , patient was following some instructions, ambulating with the help of walker with 's help. In last 2 days he would not even sit up in bed to attempt to get out of bed, decreased appetite. Family also noticed very dark and foul odorous urine in the diaper, 3 times. At times patient appeared in pain while passing urine. Family denied fever, chills, nausea, vomiting, ROS limited because patient does not provide details. When patient's condition started deteriorating 15 days back, they requested for a home health nurse, who was visiting them today and found dark- colored urine, suggesting to go to ER for possible urine infection causing altered mental status. Of note patient has been getting multiple episodes of passing out over the years, last episode was 3 months back. Patient needs assistance in feeding, eats full diet, no choking. Vitals: Afebrile, pulse in 60s, RR, BP, O2 saturation in acceptable range. On examination: Patient does not follow instructions, nonverbal, lying in position, no pedal edema, peripheral pulses perfusion normal. No JVD, neck supple, no lymphadenopathy, mucosa dry, pupils equal and reactive bilaterally. Abdomen: Soft, NT, ND, bowel sounds present. RS: clear to auscultate bilaterally. CVS: Irregular. No pressure ulcers. Neuro exam not possible as patient does not follow any instructions. No obvious skin rashes or inflammations. Labs: CBC unremarkable, potassium 3.3 otherwise BMP, LFT unremarkable troponin 0.11, TSH 2.11, urine hazy, trace protein, 50 RBC, moderate bacteria, large hemoglobin. U tox unremarkable. Imaging CT head: No acute intracranial pathology. Cerebral atrophy. Small vessel disease as before. CXR: Elevated left hemidiaphragm with associated left basilar opacity. This may be chronic. The lungs are otherwise clear. EKG paced rhythm A and P #1 encephalopathy: delirium versus worsening of dementia. Patient afebrile, no leukocytosis, vitals stable, no evidence of infection currently, pain control, f /u urine culture, CT abdomen without contrast to rule out any calculus, gentle hydration, stool softeners and bowel regimen. elevated proBNP, digoxin level #2 elevated troponin: Patient has dementia, does not complain of chest pain, patient's family has been noticing intermittent jerky movements as is getting ? shocked, previous note mentions about ventricular single-lead pacer, no history of defibrillator at this point. Admit on telemetry, continuous telemetry monitoring, cardiology consult, serial EKG, trend troponin, ?interrogation of device, ? 2-D echo, according to terminal supervisor. Continue aspirin and beta sadie continue Xeralto #3 multiple syncopal episodes in the past: Last episode 3 months back, patient was evaluated with EEG in the past, again telemetry monitoring will benefit, ? 2 -D echo. Obtain orthostatic vitals, may need to readjust medications #4 dark colored urine at home, patient had hemoglobin and RBC the urine sample in ER, may have been related to trauma with straight cath but patient was having symptoms at home. Patient is on anticoagulation. CT abdomen and pelvis hydroureteronephrosis. Urine culture. #5 continue all his medications for CAD, HTN, A. fib, HLD, PVD, Alzheimer's with metoprolol, digoxin, losartan, tamsulosin, cilostazol, Xeralto, donepezil, atorvastatin. #6 PT evaluation, case management consult for rehabilitation placement. Discussed goals of care with family, is realistic about worsening condition , wants to pursue investigations if beneficial for improvement, wants to make him more comfortable, DNR, DNI
[2016-10-23 08:35] VITALS: BP 179/75
[2016-10-23 09:42] LABS: ABSOLUTE BASOPHIL COUNT 0 /CUMM (0.0-0.2); ABSOLUTE EOSINOPHIL COUNT 0.2 /CUMM (0.0-0.7); ABSOLUTE LYMPH COUNT 3.5 /CUMM (1.2-3.4); ABSOLUTE MONOCYTE COUNT 0.4 /CUMM (0.10-0.60); BASOPHIL % 0.4 % (0.0-2.0); EOSINOPHIL % 2.5 % (0-5); GRANULOCYTE % 49.3 % (42.2-75.2); HEMATOCRIT 36.4 % (42-52); MEAN CORPUSCULAR HGB 32.2 PG (27.0-31.0); MEAN CORPUSCULAR HGB CONC 34.3 G/DL (33.0-37.0); MEAN CORPUSCULAR VOLUME 93.6 FL (80.0-94.0); MEAN PLATELET VOLUME 7.8 FL (7.4-10.4); PLATELET COUNT 177 /CUMM (130-400); RBC DISTRIBUTION WIDTH 13.6 % (11.5-14.5); RED BLOOD CELL CT 3.89 /CUMM (4.70-6.10); WHITE BLOOD CELL COUNT 8.1 /CUMM (4.8-10.8)
--- NOTE | 2016-10-23 16:11 | NUR ---
1200: PT BLADDER SCAN SHOWED 550 ML. STRAIGHT CATH HAD 600ML OUTPUT. URINE WAS RAMIREZ RED. MD SNYDER MADE AWARE. WILL CONTIUE TO MONITOR.
[2016-10-23 16:14] VITALS: BP 171/86
[2016-10-23 23:13] VITALS: BP 144/90
--- NOTE | 2016-10-24 06:22 | NUR ---
UPON ASSESSMENT AT 2300, FLORECITA RED BLOOD NOTED FROM [facility]. PT IS ON STRAIGHT CATH PROTOCOL. ASHLEY DORSEY MD MADE AWARE THAT UPON ASSESSMENT AT 0500 BLOOD STILL NOTED FROM [facility]. BLADDER SCAN REVEALED 810 ML AND PER ASHLEY, CONTINUE STRAIGHT CATH PROTOCOL AND POSSIBLE SMITH INSERTION WILL BE DISCUSSED WITH MORNING TEAM. CBC WILL BE CHECKED WITH AM LABS. 700ML OBTAINED FROM STRAIGHT CATH OF BLOODY URINE WITH CLOTS.
--- NOTE | 2016-10-24 06:56 | PN- Housestaff ---
LILLIAN BAY,HIRO 10/24/16 0656: Subjective Follow-up For: Altered Mental Status Hematuria Subjective: I saw and examined the patient today morning He is at his baseline, only responding to sternal rub. Had blood in his urine through out the night. Review of Systems Constitutional: Reports: see HPI. Comments: ROS cannot be appreciated as per the patient condition Objective Last 24 Hrs of Vital Signs/I&O Vital Signs Date Time Temp Pulse Resp B/P Pulse O2 O2 Flow FiO2 Ox Delivery Rate 10/24 0000 Room Air 10/23 2313 97.2 70 20 144/90 95 Room Air 10/23 1718 65 166/90 10/23 1614 98.6 64 18 171/86 95 Room Air 10/23 1209 Room Air Room Air 10/23 1134 66 179/75 10/23 1133 66 179/75 10/23 1133 66 179/75 10/23 1132 Room Air Room Air 10/23 0835 97.4 66 16 179/75 96 Room Air Intake & Output 10/24 0800 10/24 0000 10/23 1600 Intake Total 1080 840 Output Total 600 600 Balance 480 240 Intake, IV 600 600 Intake, Oral 480 240 Output, Urine 600 600 Physical Exam General Appearance: Alert Skin: No Rashes, No Breakdown HEENT: Atraumatic, PERRLA Neck: Supple Cardiovascular: Normal S1, Normal S2 Lungs: Normal Air Movement Abdomen: Normal Bowel Sounds, Soft, No Tenderness Extremities: No Clubbing, No Cyanosis, No Edema Vascular: Normal Pulses Assessment/Plan Assessment: Patient is a 80 year old [facility] male with PMH HTN, HLD, atrial fibrillation s/p PPM implantation in 2007, CAD s/p stenting, claudication secondary to peripheral vascular disease and Alzheimer's dementia (non-verbal at baseline) who was brought in to [place] via ambulance due to increased altered mental status. Several complaints on presentation include altered mental status, frequent falls over the last 15 days without head trauma, dark urine, right-sided preference with decreased mobility of the right lower extremity and history of syncopal spells that last 15-20 minutes. ED Course: Vital signs showed T 97.4, HR 69, RR 18, BP 125/94 and O2 saturation of 95% on room air. Labs were significant for normocytic anemia to 13.3/39.5, K 3.3, Cl 108, troponin 0.11 and normal thyroid panel. Utox was negative. UA showed hazy clarity, trace protein, 25-50 RBCs, moderate bacteria and large Hgb. CXR showed elevated left hemidiaphragm with associated left basilar opacity. This may be chronic. The lungs are otherwise clear. Head CT showed no acute intracranial pathology. Cerebral atrophy. Small vessel disease as before. Patient is admitted to the telemetry floor and the following is the management: Progressive deconditioning with encephalopathy * Patient condition is gradually worsening which was more prononunced in the past 15days, being noncommunicative. * His work up is so far negative, appaerently his general condition is declining. * His is more realistic about the condtion, and if patient condition declines opting to choose STR placement. Elevated troponins in the setting of atrial fibrillation with PPM * Likely NSTEMI vs supply-demand mismatch * Continuous telemetry monitoring * Trend troponins -- 0.11-->0.11-->0.10 with no significant changes in EKG * Cardio consult with Dr. Waller, patient's chemistry specialist * Resume all home cardiac medications, including Xarelto 20 mg PO daily, losartan 50 mg PO daily, digozin 0.125 mg PO daily and lipitor 40 mg PO daily * Hold off on echo as patient may have had recent echocardiogram, discuss with cardiology need for echo * proBNP is 3020 Dark urine with blood * BPH could be the most probable reason. * UA showed 25-50 RBCs, large hgb * CT abdomen & pelvis without IV constrast demonstrated asymmetric hydroureteronephrosis of the left kidney with no clear evidence of a distal obstructing mass or stone. The urinary bladder is diffusely thickened and demonstrates a trabeculated appearance consistent with pseudodiverticulosis in the setting of prostatic hypertrophy. * Discontinued Xarelto and started on CBI with NS. * NPO overnight for cystoscopy tomorrow by . * Urology on board, appreciate their recommendations. * Continue flomax 0.4 mg PO daily Syncope * Family reported this has been occuring for about 1 year * Possible arrhythmias. * Patient had an EEG 12/22/15 that showed no epileptiform activity (performed due to syncopal events as per family) * Continuous telemetry monitoring * Orthostatics are negative. * ECHO shows Abnormal septal motion consistent with pacemaker activation. EF >60 %. * PT evalated and recommended STR placement Atrial Fibrillation s/p PPM * Continue xarelto 20mg daily * May need pacemaker interrogation Hypokalemia * K 3.3 on admission without overt EKG changes * Repleted with 40 meq PO x 1 Klor * Today its 3.7 - will monitor HTN, HLD, CAD s/p stenting * Monitor vital signs Q shift * Continue beta sadie and lipitor daily * Increased losartan as per the medical records. PVD * Continue cilostazol 100 mg PO BID and lipitor. Alzheimer's * Continue donepezil 10 mg PO daily obtained medical records Patient had a history of lung cancer underwent left lung lobectomy on 2007, no history of prostate cancer/urological cancer. DNR/DNI Diet: Regular Mild pain pathway DVTP: Xarelto Problem List: 1. Elevated troponin 2. Acute delirium 3. Hypokalemia 4. Pacemaker 5. Syncope 6. Hematuria 7. Dementia Pain Ratin Pain Location: n/a Pain Goal: Remain pain free Pain Plan: tylenol prn Tomorrow's Labs & Rationales: cbc to monitor hemoglobin (hematuria) BEP to monitor electrolytes GARDENIA TRAN 10/24/16 1027: Attending MD Review Statement Attending Statement Attending MD Statement: examined this patient, discuss w/resident/PA/CATH LAB, agreed w/resident/PA/CATH LAB, discussed with family, reviewed EMR data (avail), discussed with nursing, discussed with case mgmt, reviewed images Attending Assessment/Plan: Attending Assessment/Plan: C: AMS and hematuria pmh: CAD S/p stent ,A fib s/p Pacemaker, HTN, HLD, PVD s/p surgery, Alzheimer's dementia Patient was brought in by Family through EMS for worsening mentation. Patient lives at home with his , she is his primary caregiver along with Son's help. Over the past 2 weeks, family has noticed acute decline in his mental status, less responsive, slipped from bed and had a fall 15 days back, gait changes leaning towards right side, right lower extremity weakness, on and off leg swellings, intermittent jerky movements. At baseline patient is nonverbal, legally blind with macular degeneration. Before October 10 , patient was following some instructions, ambulating with the help of walker with 's help. In last 2 days he would not even sit up in bed to attempt to get out of bed, decreased appetite. Family also noticed very dark and foul odorous urine in the diaper, 3 times. At times patient appeared in pain while passing urine. Family denied fever, chills, nausea, vomiting, ROS limited because patient does not provide details. When patient's condition started deteriorating 15 days back, they requested for a home health nurse, who was visiting them today and found dark- colored urine, suggesting to go to ER for possible urine infection causing altered mental status. Of note patient has been getting multiple episodes of passing out over the years, last episode was 3 months back. Patient needs assistance in feeding, eats full diet, no choking. Labs: CBC unremarkable, potassium 3.3 otherwise BMP, LFT unremarkable, serial acrdiac enzymes, TSH 2.11, urine hazy, trace protein, 50 RBC, moderate bacteria, large hemoglobin. U tox unremarkable. Imaging CT head: No acute intracranial pathology. Cerebral atrophy. Small vessel disease as before. CXR: Elevated left hemidiaphragm with associated left basilar opacity. This may be chronic. The lungs are otherwise clear. EKG paced rhythm A and P #1 Encephalopathy: delirium versus worsening of dementia. Patient afebrile, no leukocytosis, vitals stable, no evidence of infection currently, pain control, f /u urine culture. ammonia wnl, also obtain lumbo-sacral spine xray. #2 elevated troponin: Patient has dementia, does not complain of chest pain, patient's family has been noticing intermittent jerky movements as is getting ? shocked, previous note mentions about ventricular single-lead pacer, no history of defibrillator at this point. Admit on telemetry, continuous telemetry monitoring, cardiology consult, serial EKG, trend troponin, ?interrogation of device, ? 2-D echo, consult chemistry specialist. HOLD aspirin and beta sadie, Xeralto. #3 multiple syncopal episodes in the past: Last episode 3 months back, patient was evaluated with EEG in the past, again telemetry monitoring will benefit, ? 2 -D echo. f/u orthostatic vitals. #4 Abdoul colored heamturia, may have been related to trauma vs thickening of urniar bladder ?mass. Patient is on anticoagulation. CT abdomen and pelvis hydroureteronephrosis. UROLOGY consult. CBI ongoing. #5 continue all his medications for CAD, HTN, A. fib, HLD, PVD, Alzheimer's with metoprolol, digoxin, losartan, tamsulosin, cilostazol, Xeralto, donepezil, atorvastatin. (hold a/c meds) #6 PT evaluation, case management consult for rehabilitation placement. Discussed goals of care with family, is realistic about worsening condition , wants to pursue investigations if beneficial for improvement, wants to make him more comfortable, DNR, DNI
--- NOTE | 2016-10-24 07:27 | Discharge Summary ---
Visit Information Visit Dates Admission Date: 10/22/16 Discharge Date: 10/29/2016 Hospital Course Course Attending Physician: ELEUTERIO REYES MD Primary Care Physician: ESTHELA BAY,MARCIA Pierre Consulting Request: Consulting Specialty: Cardiology Consulting Physician: Dr. Waller Reason for Consult: Elevated troponin Hospital Course: This is a demented 80 year old [place]ian-born male with PMH HTN, HLD, atrial fibrillation s/p PPM implantation in 2007, CAD s/p stenting, claudication secondary to peripheral vascular disease and Alzheimer's dementia (non-verbal at baseline) who was brought in to [facility] via ambulance due to increased altered mental status. Due to clinical condition and Alzheimer's dementia, history is obtained from his and [id number] who are at bedside. According to his , Mr. Ambriz has been mumbling less, more altered than normal and has been staring off into space instead of participating in visual tracking. This is associated with three falls over the last fifteen days without head trauma. Patient is noted to have been leaning more to the right side of his body and does not lift his right leg to move. There is also a report of darkening of patient's urine to a brown color, concerning his visiting nurse for hematuria; he has not decreased his oral intake of fluids over this time frame. Was admitted to the telemetry floor and we managed him for the following conditions. Elevated troponins in the setting of atrial fibrillation with PPM Likely NSTEMI vs supply-demand mismatch highest troponin was 0.11 and since very dense troponin decreased to normal levels. There was no EKG changes noted. Patient did not complain of any chest pain during the course of the stay. She was seen by mathematician Dr. Waller at some points during the course of the stay his Xarelto was stopped a cause of blood in urine. During the course of the stay the patient will get interrogation of his pacemaker and the echocardiogram to assess cardiac function. Echocardiogram showed moderate concentric left ventricular hypertrophy and estimated ejection fraction of more than 60% in the left ventricle. Dark urine with blood It was reported that the patient has been having dark urine but there was not any fever or chills reported. He has also been noted to be more incontinent not able to provide in her left when he needed to relieve himself. We can attribute this to advancement in his dementia. On the second day after admission the patient started producing cathy red blood per urethra. He was seen by urologist Dr. Osullivan and he had a cystoscopy just established bladder trabeculation infestation of enlarged prostate and urine retention. Post procedure the patient was maintained on CBI with significant blood in urine and will be discharged with the Richardson catheter in situ instruction to follow up with urologist Dr. Osullivan. Patient is being discharged with instructions to continue with Flomax 0.4 mg daily. Of note, he is still getting anticoagulant. Syncope Patient has had multiple episodes of fall at home. He is having advanced dementia and possibly can be having orthostasis contributing to the falls. There are no significant arrhythmia noted during the course of the stay in telemetry. Patient was evaluated by physical therapist and recommended for short-term rehabilitation. Hypokalemia [resolved] K 3.3 on admission without overt EKG changes, patient received oral supplementation of potassium with resolution of the hypokalemia. HTN, HLD, CAD s/p stenting Patient blood pressure remained stable during the course of the stay. He was Continue beta sadie, losartan and lipitor daily per home dose. PVD Remained stable, continued on cilostazol 100 mg PO BID. Will be discharged home with instructions to continue with medication at the same level. Alzheimer Patient's mental status has been deteriorating progressively. While in the hospital he was kept on donepezil 10 mg PO daily which is his home medication. He holds a DNR/DNI code status. Complications: Cathy blood per urethra Allergies: Coded Allergies: NO KNOWN ALLERGIES (10/22/16) Significant Procedures: Cystoscopy Pertinent Lab Results: Laboratory Tests 10/24 10/23 0650 1002 Chemistry Sodium (137 - 145 mmol/L) 144 Potassium (3.5 - 5.1 mmol/L) 3.7 Chloride (98 - 107 mmol/L) 111 H Carbon Dioxide (22 - 30 mmol/L) 30 Anion Gap (5 - 16) 2 L BUN (9 - 20 mg/dL) 13 Creatinine (0.7 - 1.2 mg/dL) 0.8 Estimated GFR (>60 ml/min) > 60 BUN/Creatinine Ratio (7 - 25 %) 16.3 Ammonia (9 - 30 umol/L) < 9 L Hematology CBC w Diff NO MAN DIFF REQ WBC (4.8 - 10.8 /CUMM) 9.4 RBC (4.70 - 6.10 /CUMM) 3.88 L Hgb (14.0 - 18.0 G/DL) 12.3 L Hct (42 - 52 %) 36.4 L MCV (80.0 - 94.0 FL) 93.9 MCH (27.0 - 31.0 PG) 31.6 H RDW (11.5 - 14.5 %) 13.9 Plt Count (130 - 400 /CUMM) 174 MPV (7.4 - 10.4 FL) 7.6 Gran % (42.2 - 75.2 %) 47.5 Lymphocytes % (20.5 - 51.1 %) 45.9 Monocytes % (1.7 - 9.3 %) 4.4 Eosinophils % (0 - 5 %) 1.7 Basophils % (0.0 - 2.0 %) 0.5 Absolute Granulocytes (1.4 - 6.5 /CUMM) 4.5 Absolute Lymphocytes (1.2 - 3.4 /CUMM) 4.3 H Absolute Monocytes (0.10 - 0.60 /CUMM) 0.4 Absolute Eosinophils (0.0 - 0.7 /CUMM) 0.2 Absolute Basophils (0.0 - 0.2 /CUMM) 0 PUBS MCHC (33.0 - 37.0 G/DL) 33.7 10/23 10/23 10/22 0850 0025 1826 Chemistry Sodium (137 - 145 mmol/L) 146 H Potassium (3.5 - 5.1 mmol/L) 4.1 Chloride (98 - 107 mmol/L) 115 H Carbon Dioxide (22 - 30 mmol/L) 28 Anion Gap (5 - 16) 3 L BUN (9 - 20 mg/dL) 14 Creatinine (0.7 - 1.2 mg/dL) 0.8 Estimated GFR (>60 ml/min) > 60 BUN/Creatinine Ratio (7 - 25 %) 17.5 Creatine Kinase (55 - 170 U/L) 43 L Troponin I (<0.11 ng/ml) 0.10 0.11 *H Cancelled Total PSA (0.00 - 4.00 ng/mL) 2.14 TSH Cancelled Thyroxine (T4) Cancelled Thyroxine Binding Indx Cancelled Hematology CBC w Diff NO MAN DIFF REQ WBC (4.8 - 10.8 /CUMM) 8.1 RBC (4.70 - 6.10 /CUMM) 3.89 L Hgb (14.0 - 18.0 G/DL) 12.5 L Hct (42 - 52 %) 36.4 L MCV (80.0 - 94.0 FL) 93.6 MCH (27.0 - 31.0 PG) 32.2 H RDW (11.5 - 14.5 %) 13.6 Plt Count (130 - 400 /CUMM) 177 MPV (7.4 - 10.4 FL) 7.8 Gran % (42.2 - 75.2 %) 49.3 Lymphocytes % (20.5 - 51.1 %) 42.8 Monocytes % (1.7 - 9.3 %) 5.0 Eosinophils % (0 - 5 %) 2.5 Basophils % (0.0 - 2.0 %) 0.4 Absolute Granulocytes (1.4 - 6.5 /CUMM) 4.0 Absolute Lymphocytes (1.2 - 3.4 /CUMM) 3.5 H Absolute Monocytes (0.10 - 0.60 /CUMM) 0.4 Absolute Eosinophils (0.0 - 0.7 /CUMM) 0.2 Absolute Basophils (0.0 - 0.2 /CUMM) 0 PUBS MCHC (33.0 - 37.0 G/DL) 34.3 Toxicology Digoxin (0.8 - 2.0 ng/mL) 0.7 L Serum Alcohol Cancelled 10/22 1816 Toxicology Urine Opiates Screen (>2000 NG/ML) < 100.00 Methadone Screen (>300 NG/ML) < 40 Barbiturate Screen (>200 NG/ML) < 60 Ur Phencyclidine Scrn (>25 NG/ML) < 6.00 Amphetamines Screen (>1000 NG/ML) < 100 U Benzodiazepines Scrn (>200 NG/ML) < 85 Urine Cocaine Screen (>300 NG/ML) < 50 Urine Cannabis Screen (>50 NG/ML) < 5.00 Urines Urinalysis LIGHT H Urine Color (YEL,AMB,STR) ABNER Urine Clarity (CLEAR) HAZY H Urine pH (5.0 - 8.0) 6.0 Ur Specific [place] (1.001 - 1.035) 1.010 Urine Protein (NEG,<30 MG/DL) TRACE H Urine Ketones (NEG) NEG Urine Nitrite (NEG) NEG Urine Bilirubin (NEG) NEG Urine Urobilinogen (0.1 - 1.0 EU/dl) 1.0 Ur Leukocyte Esterase (NEG) NEG Ur Microscopic SEDIMENT EXAMINED Urine RBC (0 - 5 /HPF) 25-50 H Urine Bacteria (NEG/NONE) MOD H Urine Hemoglobin (NEG) LARGE H Urine Glucose (N MG/DL) NEG 10/22 1752 Chemistry Sodium (137 - 145 mmol/L) 144 Potassium (3.5 - 5.1 mmol/L) 3.3 L Chloride (98 - 107 mmol/L) 108 H Carbon Dioxide (22 - 30 mmol/L) 29 Anion Gap (5 - 16) 7 BUN (9 - 20 mg/dL) 18 Creatinine (0.7 - 1.2 mg/dL) 0.8 Estimated GFR (>60 ml/min) > 60 BUN/Creatinine Ratio (7 - 25 %) 22.5 Glucose (65 - 99 mg/dL) 97 Calcium (8.4 - 10.2 mg/dL) 9.3 Total Bilirubin (0.2 - 1.3 mg/dL) 0.8 AST (17 - 59 U/L) 19 ALT (21 - 72 U/L) 34 Alkaline Phosphatase (< 127 U/L) 85 Troponin I (<0.11 ng/ml) 0.11 *H [id number] Pept (<125 pg/mL) 3020 H Total Protein (6.3 - 8.2 g/dL) 6.0 L Albumin (3.5 - 5.0 g/dL) 3.4 L Globulin (1.9 - 4.2 gm/dL) 2.6 Albumin/Globulin Ratio (1.1 - 2.2 %) 1.3 Triglycerides (<150 mg/dL) 175 H Cholesterol (< 200 MG/DL) 133 LDL Cholesterol, Calc (65 - 129 mg/dL) 60 L HDL Cholesterol (40 - 60 mg/dL) 38 L Cholesterol/HDL Ratio (0.00 - 4.88 %) 4 TSH (0.270 - 4.200 uIU/mL) 2.110 Thyroxine (T4) (4.5 - 10.9 ug/dL) 6.0 Thyroxine Binding Indx (23.5 - 40.5 % UPTAKE) 39.2 Hematology CBC w Diff NO MAN DIFF REQ WBC (4.8 - 10.8 /CUMM) 8.0 RBC (4.70 - 6.10 /CUMM) 4.20 L Hgb (14.0 - 18.0 G/DL) 13.3 L Hct (42 - 52 %) 39.5 L MCV (80.0 - 94.0 FL) 94.0 MCH (27.0 - 31.0 PG) 31.5 H RDW (11.5 - 14.5 %) 13.8 Plt Count (130 - 400 /CUMM) 203 MPV (7.4 - 10.4 FL) 7.3 L Gran % (42.2 - 75.2 %) 49.5 Lymphocytes % (20.5 - 51.1 %) 42.7 Monocytes % (1.7 - 9.3 %) 5.5 Eosinophils % (0 - 5 %) 1.6 Basophils % (0.0 - 2.0 %) 0.7 Absolute Granulocytes (1.4 - 6.5 /CUMM) 3.9 Absolute Lymphocytes (1.2 - 3.4 /CUMM) 3.4 Absolute Monocytes (0.10 - 0.60 /CUMM) 0.4 Absolute Eosinophils (0.0 - 0.7 /CUMM) 0.1 Absolute Basophils (0.0 - 0.2 /CUMM) 0.1 PUBS MCHC (33.0 - 37.0 G/DL) 33.6 Toxicology Serum Alcohol (<10 MG/DL) < 10.0 Disposition Summary Disposition Principal Diagnosis: Non-ST elevated myocardial infarction Dementia Hematuria Additional Diagnosis: Hypertension Hyperlipidemia Peripheral vascular disease Discharge Disposition: SNF Discharge Instructions General Discharge Information Code Status: Do Not Resucitate/Intubat Patient's Diet: Heart health diet Patient's Activity: As tolerated Follow-Up Instructions/Appts: Please call and make a follow-up with your primary care physician within one week after discharge Medications at Discharge Discharge Medications: Stop taking the following medications: Metoprolol Succinate (Metoprolol Succinate) 100 MG TAB.ER.24H ORAL DAILY Qty = 90 Continue taking these medications: Digoxin (Digoxin) 125 MCG TABLET 1 Tablet ORAL DAILY Qty = 90 Comments: Last Taken: 10/29/16 Time: 1644 Rivaroxaban (Xarelto) 20 MG TABLET 1 Tablet ORAL DAILY Qty = 90 Instructions: with food Comments: Last Taken: 10/29/16 Time: 1645 Cilostazol (Cilostazol) 100 MG TABLET 1 Tablet ORAL TWICE DAILY Qty = 180 Comments: Last Taken: 10/29/16 Time: 1145 Tamsulosin HCl (Tamsulosin HCl) 0.4 MG CAP.ER.24H 1 Capsule ORAL DAILY Qty = 90 Comments: Last Taken: 10/29/16 Time: 1145 Donepezil HCl (Donepezil HCl) 10 MG TABLET 1 Tablet ORAL DAILY Qty = 90 Comments: Last Taken: 10/29/16 Time: 1145 Atorvastatin Calcium (Atorvastatin Calcium) 40 MG TABLET 1 Tablet ORAL DAILY Qty = 90 Comments: Last Taken: 10/29/16 Time: 1145 Losartan (Cozaar) 100 MG TABLET 1 Tablet ORAL DAILY Qty = 30 Comments: Last Taken: 10/29/16 Time: 1145 Start taking the following new medications: Metoprolol Tartrate (Metoprolol Tartrate) 50 MG TABLET 50 Milligram ORAL TWICE DAILY Days = 30 No Refills Comments: Last Taken: 10/29/16 Time: 1145 Finasteride (Proscar) 5 MG TABLET 1 Tablet ORAL DAILY Qty = 30 No Refills Comments: Last Taken: 10/29/16 Time: 1145 Copies To: SARA BAY,VERONICA Torres; ESTHELA BAY,MARCIA Pierre; ENRIQUE BAY,KENZIE
[2016-10-24 08:00] VITALS: BP 110/60
[2016-10-24 08:09] LABS: ABSOLUTE BASOPHIL COUNT 0 /CUMM (0.0-0.2); ABSOLUTE EOSINOPHIL COUNT 0.2 /CUMM (0.0-0.7); ABSOLUTE GRANULOCYTE CT 4.5 /CUMM (1.4-6.5); ABSOLUTE LYMPH COUNT 4.3 /CUMM (1.2-3.4); ABSOLUTE MONOCYTE COUNT 0.4 /CUMM (0.10-0.60); BASOPHIL % 0.5 % (0.0-2.0); EOSINOPHIL % 1.7 % (0-5); GRANULOCYTE % 47.5 % (42.2-75.2); HEMATOCRIT 36.4 % (42-52); MEAN CORPUSCULAR HGB 31.6 PG (27.0-31.0); MEAN CORPUSCULAR HGB CONC 33.7 G/DL (33.0-37.0); MEAN CORPUSCULAR VOLUME 93.9 FL (80.0-94.0); MEAN PLATELET VOLUME 7.6 FL (7.4-10.4); RBC DISTRIBUTION WIDTH 13.9 % (11.5-14.5); RED BLOOD CELL CT 3.88 /CUMM (4.70-6.10); WHITE BLOOD CELL COUNT 9.4 /CUMM (4.8-10.8)
[2016-10-24 08:53] LABS: PLATELET COUNT 174 /CUMM (130-400)
[2016-10-24 09:06] VITALS: BP 146/78
--- NOTE | 2016-10-24 13:07 | Cons- Urology ---
General Information and HPI Consulting Request Date of Consult: 10/24/16 Requested By: ELEUTERIO REYES MD Reason for Consult: baldder mass on renal US Source of Information: patient, old records Exam Limitations: no limitations History of Present Illness: 80-year-old gentleman admitted for multiple medical problems. CAT scan was performed including a renal ultrasound revealing abnormalities in the bladder. The patient denies any voiding problems. Denies any history of gross hematuria. Plan is for diagnostic cystoscopy with biopsy in the near future. Allergies/Medications Allergies: Coded Allergies: NO KNOWN ALLERGIES (10/22/16) Home Med List: Atorvastatin Calcium 40 MG TABLET 1 TAB PO DAILY CHOLESTEROL (Reported) Cilostazol 100 MG TABLET 1 TAB PO BID BLOOD FLOW (Reported) Digoxin 125 MCG TABLET 1 TAB PO DAILY HEART (Reported) Donepezil HCl 10 MG TABLET 1 TAB PO DAILY MEMORY (Reported) Finasteride (Proscar) 5 MG TABLET 1 TAB PO DAILY urination Losartan (Cozaar) 100 MG TABLET 1 TAB PO DAILY HTN (Reported) Metoprolol Tartrate 50 MG TABLET 50 MG PO BID blood pressure Rivaroxaban (Xarelto) 20 MG TABLET 1 TAB PO DAILY BLOOD THINNER (Reported) with food Tamsulosin HCl 0.4 MG CAP.ER.24H 1 CAP PO DAILY PROSTATE (Reported) Past History Medical History Neurological: Alzheimer's disease, dementia Cardiovascular: AFIB, hypertension, PACEMAKER Surgical History Pertinent Surgical History: non-contributory Psychosocial History Where Do You Live? Home Who Do You Live With? spouse Services at Home: Nursing Primary Language: [facility] Smoking Status: Former Smoker ETOH Use: denies use Illicit Drug Use: denies illicit drug use Living Will? yes Functional Ability ADLs Needs Assist: dressing, eating, toileting, bathing. Ambulation: non-ambulatory IADLs Needs Assist: shopping, housework, finances, food prep, telephone, transportation, medication admin. Employment History Employment: Retired Retired? yes Review of Systems Review of Systems Constitutional: Reports: no symptoms. EENTM: Denies: no symptoms. Cardiovascular: Denies: no symptoms. Respiratory: Denies: no symptoms. Genitourinary: Denies: no symptoms. Musculoskeletal: Reports: joint pain, muscle pain. Skin: Denies: no symptoms. Exam & Diagnostic Data Vital Signs and I&O VSS afebrile. Physical Exam General Appearance: well developed/nourished Head: atraumatic Eyes: Bilateral: normal appearance. Neck: normal inspection Respiratory: normal breath sounds Cardiovascular: regular rate/rhythm Gastrointestinal: normal bowel sounds Back: no vertebral tenderness Extremities: normal inspection Reproductive: Normal male genitalia Last 24 Hours of Labs: x Imaging Results: PATIENT: KARL BETH PRESENT AGE: 80 PATIENT ACCOUNT NO: [id number] : 37 LOCATION: [facility] ORDERING PHYSICIAN: AZUCENA RUIZ MD SERVICE DATE: 10/22/16 EXAM TYPE: CAT - CT ABD & PELVIS W/O IV CONTRAS EXAMINATION: CT ABDOMEN AND PELVIS WITHOUT CONTRAST CLINICAL INFORMATION: Benign prostatic hypertrophy versus nephrolithiasis causing hematuria. Hematuria and pain. COMPARISON: No relevant prior imaging available. TECHNIQUE: Multidetector volumetric imaging was performed from the superior aspect of the liver through the pubic symphysis. Sagittal and coronal reformatted images were obtained on the technologist's workstation. DLP: 401.96 mGy-cm FINDINGS: LUNG BASES: There is scarring and/or atelectasis within both lung bases and a small left pleural effusion. The right atrium is enlarged. No pericardial effusion. LIVER, GALLBLADDER, AND BILIARY TREE: There is a small well marginated benign-appearing cystic lesion within the left lobe of liver that measures 1.5 cm in diameter. The unenhanced liver is otherwise grossly unremarkable. The gallbladder is contracted. There is no evidence of intrahepatic or extrahepatic biliary ductal dilatation. PANCREAS: Unremarkable. SPLEEN: Unremarkable. ADRENAL GLANDS: Unremarkable. KIDNEYS AND URETERS: There is mild left hydroureteronephrosis. There is no distal obstructing mass or calcification. No nephrolithiasis. No worrisome perinephric inflammation or collection. Kidneys are grossly symmetric in size. BLADDER: The urinary bladder has a trabeculated surface consistent with pseudodiverticulosis associated with prostatic hypertrophy. The possibility of a urothelial mass cannot be excluded on the basis of this examination due to irregular thickening of the urinary bladder wall. GASTROINTESTINAL TRACT: The stomach and small bowel are unremarkable. The colon and appendix are normal. A moderate volume of stool fills rectum. There is no free intraperitoneal air or fluid. No abnormal inflammatory changes within the mesenteric or retroperitoneal fat. ABDOMINAL WALL: The abdominal wall is grossly intact with exception of a fat-containing left inguinal hernia. LYMPH NODES: There are no pathologically enlarged mesenteric or retroperitoneal lymph nodes. VASCULAR: There is diffuse atheromatous calcification involving the infrarenal abdominal aorta and iliac vessels. There is a fusiform aneurysm of the infrarenal abdominal aorta that measures 3.8 cm in diameter. The unenhanced inferior vena cava is unremarkable. PELVIC VISCERA: The prostate gland is grossly enlarged with a transverse diameter of 6.8 cm. OSSEOUS STRUCTURES: There is no worrisome lytic or blastic osseous lesion. There is multilevel degenerative spondylosis of the lumbar spine. No evidence of acute fracture or subluxation. IMPRESSION: There is asymmetric hydroureteronephrosis of the left kidney with no clear evidence of a distal obstructing mass or stone. The urinary bladder is diffusely thickened and demonstrates a trabeculated appearance consistent with pseudodiverticulosis in the setting of prostatic hypertrophy. The possibility of a urothelial mass cannot be exclude on the basis of this examination. 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 Limited visualization of the intrathoracic structures demonstrates right atrial enlargement. Assessment/Plan Assessment/Plan gross hematuria/clear on CBI-for cystoscopy tomorrow Copies To: KENZIE NUNEZ MD Consult Acknowledgment - Thank you for your consult request. Attending MD Review Statement Attending Statement Attending MD Statement: examined this patient, discuss w/resident/PA/COMPUTER ENGINEERING TECHNOLOGIST Attending Assessment/Plan: hematuria: abnormal bladder on ct (likely BPH result) will cystoscope when medically stable.
--- NOTE | 2016-10-24 16:07 | Patient Discharge Instructions ---
Discharge Instructions General Discharge Information You were seen/treated for: Non-ST elevated myocardial infarction Hematuria Special Instructions: Please call and make a follow-up with your primary care physician within one week after discharge Hadley TO BE FLUSHED Q4 HRS PRN WITH 50 CC STERILE WATER Please call and make a follow-up with urologist Dr. Osullivan within 1 week after discharge regarding indwelling hadley catheter Acute Coronary Syndrome Inclusion Criteria At DC or during hospital stay patient has or had the following: ACS DIAGNOSIS Yes Discharge Core Measures Meds if any: Prescribed or Continued at Discharge ISSA/ARB if EF <40% Yes Meds if any: NOT Prescribed or Continued at Discharge Congestive Heart Failure Inclusion Criteria At DC or during hospital stay patient has or had the following: CHF DIAGNOSIS No Discharge Core Measures Meds if any: Prescribed or Continued at Discharge Meds if any: NOT Prescribed or Continued at Discharge Cerebrovascular accident Inclusion Criteria At DC or during hospital stay patient has or had the following: CVA/TIA Diagnosis No Discharge Core Measures Meds if any: Prescribed or Continued at Discharge Meds if any: NOT Prescribed or Continued at Discharge Venous thromboembolism Inclusion Criteria VTE Diagnosis No VTE Type NONE VTE Confirmed by (Test) NONE Discharge Core Measures - Per Current guidelines, there needs to be overlap - treatment for the first 5 days of Warfarin therapy. - If discharged on Warfarin prior to 5 days of - overlap therapy, the patient will need to be - assessed for post discharge needs including - *Post discharge parental anticoagulation - *Warfarin and/or parental anticoagulation education - *Follow up date to check INR post discharge At least 5 days overlap therapy as Inpatient No Meds if any: Prescribed or Continued at Discharge Note: Overlap Therapy is Warfarin and Anticoagulant Meds if any: NOT Prescribed or Continued at Discharge
[2016-10-24 16:27] VITALS: BP 160/88
--- NOTE | 2016-10-24 17:40 | ECHOCARDIOGRAM REPORT ---
KARL BETH Age: 80 : 1935 Gender: M Exam Date: 10/24/2016 16:12 Exam Location: [address] [place] Ht (in): 72 Wt (lb): 184 BSA: 2.07 BP: 146 / 78 Ordering Physician: JEREMIAS SWARTZ MD Referring Physician: Mart Waller MD Technologist: Laila Zee [facility] Room Number: 176 Indications: PRESYNCOPE/SYNCOPE Rhythm: Atrial fibrillation Technical Quality: Fair FINDINGS Left Ventricle Normal size left ventricle. Moderate concentric left ventricular hypertrophy. Abnormal septal motion consistent with pacemaker activation. No other obvious regional wall motion abnormalities. Normal left ventricular systolic function. Estimated ejection fraction >60%. Right Ventricle Right ventricle at upper limits of normal. Catheter/pacemaker wire in the right ventricular cavity. Right Atrium Moderate right atrial dilatation. Catheter/pacemaker wire in the right atrial cavity. Left Atrium Moderate left atrial dilatation. Mitral Valve Mildly calcified mitral valve annulus. Mitral valve thickened. Mild mitral regurgitation. Aortic Valve Trileaflet aortic valve. Mild aortic sclerosis. No aortic stenosis. Mild aortic regurgitation. Tricuspid Valve Structurally normal tricuspid valve. Moderate tricuspid regurgitation. Moderate pulmonary hypertension. Right ventricular systolic pressure estimated to be elevated at 49 mmHg. Pulmonic Valve Pulmonic valve not well visualized, grossly normal. Mild pulmonic regurgitation. Pericardium No pericardial effusion. Great Vessels Upper normal limits for size aortic root. Mildly dilated ascending aorta. CONCLUSIONS Normal size left ventricle. Moderate concentric left ventricular hypertrophy. Abnormal septal motion consistent with pacemaker activation. No other obvious regional wall motion abnormalities. Normal left ventricular systolic function. Estimated ejection fraction >60%. Right ventricle at upper limits of normal. Catheter/pacemaker wire in the right ventricular cavity. Moderate right atrial dilatation. Catheter/pacemaker wire in the right atrial cavity. Moderate left atrial dilatation. Mild mitral regurgitation. Mild aortic regurgitation. Moderate tricuspid regurgitation. Moderate pulmonary hypertension. Mild pulmonic regurgitation. Mildly dilated ascending aorta. Mart Waller M.D. (Electronically Signed) Final Date: 24 October 2016 17:40 MEASUREMENTS (Male / Female) Normal Values 2D ECHO LV Diastolic Diameter PLAX 3.6 cm 4.2 - 5.9 / 3.9 - 5.3 cm LV Systolic Diameter PLAX 2.4 cm 2.1 - 4.0 cm LV Fractional Shortening PLAX 33.3 % 25 - 46 % LV Ejection Fraction 2D Teich 63.0 % IVS Diastolic Thickness 1.6 cm LVPW Diastolic Thickness 1.5 cm LV Relative Wall Thickness 0.9 RV Internal Dim ED PLAX 3.2 cm 1.9 - 3.8 cm LVOT Diameter 2.1 cm Aortic Root Diameter 3.6 cm LA Systolic Diameter LX 3.7 cm 3.0 - 4.0 / 2.7 - 3.8 cm LA Volume 72.0 cm 18 - 58 / 22 - 52 cm Ascending Aorta Diameter 3.4 cm DOPPLER AV Peak Velocity 99.2 cm/s AV Peak Gradient 3.9 mmHg AV Mean Velocity 71.0 cm/s AV Mean Gradient 2.0 mmHg AV Velocity Time Integral 21.2 cm AI Deceleration Cache 209.0 cm/s AI Peak Velocity 446.0 cm/s AI Pressure Half Time 626.0 ms AI Peak Gradient 79.6 mmHg LVOT Peak Velocity 80.5 cm/s LVOT Peak Gradient 2.6 mmHg LVOT Mean Velocity 50.6 cm/s LVOT Mean Gradient 1.0 mmHg LVOT Velocity Time Integral 13.4 cm LVOT Stroke Volume 46.4 cm AV Area Cont Eq vti 2.2 cm AV Area Cont Eq pk 2.8 cm MV Peak Velocity 127.0 cm/s MV Peak Gradient 6.5 mmHg MV Mean Velocity 53.0 cm/s MV Mean Gradient 1.0 mmHg Mitral E Point Velocity 119.0 cm/s MV PHT Velocity 134.0 cm/s MV Deceleration Cache 760.0 cm/s MV Pressure Half Time 52.9 ms MV Area PHT 4.2 cm MV Deceleration Time 148.0 ms TR Peak Velocity 330.0 cm/s TR Peak Gradient 43.6 mmHg Right Atrial Pressure 5.0 mmHg Pulmonary Artery Systolic Pressu 48.6 mmHg Right Ventricular Systolic Press 48.6 mmHg PV Peak Velocity 78.5 cm/s PV Peak Gradient 2.5 mmHg PV Mean Velocity 50.8 cm/s PV Mean Gradient 1.0 mmHg PV Velocity Time Integral 14.2 cm LV E' Lateral Velocity 15.0 cm/s Mitral E to LV E' Lateral Ratio 7.9 LV E' Septal Velocity 7.5 cm/s Mitral E to LV E' Septal Ratio 15.8
--- NOTE | 2016-10-24 17:44 | Cons- Cardiology ---
General Information and HPI Consulting Request Date of Consult: 10/24/16 Requested By: ELEUTERIO REYES MD Reason for Consult: Management of anticoagulation. Source of Information: family, old records Exam Limitations: dementia History of Present Illness: Mr. 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 Allergies/Medications Allergies: Coded Allergies: NO KNOWN ALLERGIES (10/22/16) Home Med List: Atorvastatin Calcium 40 MG TABLET 1 TAB PO DAILY CHOLESTEROL (Reported) Cilostazol 100 MG TABLET 1 TAB PO BID BLOOD FLOW (Reported) Digoxin 125 MCG TABLET 1 TAB PO DAILY HEART (Reported) Donepezil HCl 10 MG TABLET 1 TAB PO DAILY MEMORY (Reported) Losartan Potassium 50 MG TABLET 1 TAB PO DAILY HEART/BP (Reported) Metoprolol Succinate 100 MG TAB.ER.24H 1 TAB PO DAILY HEART/BP (Reported) Rivaroxaban (Xarelto) 20 MG TABLET 1 TAB PO DAILY BLOOD THINNER (Reported) with food Tamsulosin HCl 0.4 MG CAP.ER.24H 1 CAP PO DAILY PROSTATE (Reported) Review of Systems Review of Systems: A review of systems was unobtainable, given the patient's advanced dementia. Past History Travel History Traveled to [place] past 21 day No Medical History Neurological: Alzheimer's disease, dementia Cardiovascular: AFIB, CAD, hypertension, hyperlipidemia, PVD, PACEMAKER Respiratory: leftsquamous cell lung carcinoma s/p lobectomy Surgical History Surgical History: non-contributory Psychosocial History Where Do You Live? Home Who Do You Live With? spouse Services at Home: Nursing Primary Language: Dutch Smoking Status: Former Smoker ETOH Use: denies use Illicit Drug Use: denies illicit drug use Living Will? yes Functional Ability ADLs Needs Assist: dressing, eating, toileting, bathing. Ambulation: non-ambulatory IADLs Needs Assist: shopping, housework, finances, food prep, telephone, transportation, medication admin. Employment History Employment: Retired Exam & Diagnostic Data Vital Signs and I&O Vital Signs Date Time Temp Pulse Resp B/P Pulse O2 O2 Flow FiO2 Ox Delivery Rate 10/24 1704 67 160/88 10/24 1627 97.7 67 20 160/88 98 Room Air 10/24 0957 64 146/78 10/24 0956 64 146/78 10/24 0956 64 146/78 10/24 0906 97.7 64 20 146/78 98 Room Air 10/24 0800 98.6 108 20 110/60 918 Nasal Cannula 10/24 0000 Room Air 10/23 2313 97.2 70 20 144/90 95 Room Air Intake & Output 10/24 1600 10/24 0800 10/24 0000 10/23 1600 10/23 0800 10/23 0000 Intake Total 211 255 5029 840 525 Output Total 1550 700 323 670 7515 1000 Balance -670 -350 480 240 -475 -1000 Intake, IV 400 350 600 600 525 Intake, Oral 480 480 240 Output, Urine 1550 700 741 476 4323 1000 Patient 185 lb Weight Physical Exam: Well-developed, well-nourished elderly male in no acute distress. Vital signs: See above. HEENT: Normocephalic, atraumatic, EOMI, slightly dry mucous membranes. Neck: No JVD, no bruits. Lungs: Decreased breath sounds left base otherwise clear. Heart: S1, S2 and grade 1-2/6 systolic murmur left sternal border. No gallop or rub appreciated. PMI fifth ICS at [facility]. Abdomen: Soft, nontender, positive bowel sounds. Extremities: No edema. Labs/Onel Results: Laboratory Tests 10/24 10/23 0650 1002 Chemistry Sodium (137 - 145 mmol/L) 144 Potassium (3.5 - 5.1 mmol/L) 3.7 Chloride (98 - 107 mmol/L) 111 H Carbon Dioxide (22 - 30 mmol/L) 30 Anion Gap (5 - 16) 2 L BUN (9 - 20 mg/dL) 13 Creatinine (0.7 - 1.2 mg/dL) 0.8 Estimated GFR (>60 ml/min) > 60 BUN/Creatinine Ratio (7 - 25 %) 16.3 Ammonia (9 - 30 umol/L) < 9 L Hematology CBC w Diff NO MAN DIFF REQ WBC (4.8 - 10.8 /CUMM) 9.4 RBC (4.70 - 6.10 /CUMM) 3.88 L Hgb (14.0 - 18.0 G/DL) 12.3 L Hct (42 - 52 %) 36.4 L MCV (80.0 - 94.0 FL) 93.9 MCH (27.0 - 31.0 PG) 31.6 H RDW (11.5 - 14.5 %) 13.9 Plt Count (130 - 400 /CUMM) 174 MPV (7.4 - 10.4 FL) 7.6 Gran % (42.2 - 75.2 %) 47.5 Lymphocytes % (20.5 - 51.1 %) 45.9 Monocytes % (1.7 - 9.3 %) 4.4 Eosinophils % (0 - 5 %) 1.7 Basophils % (0.0 - 2.0 %) 0.5 Absolute Granulocytes (1.4 - 6.5 /CUMM) 4.5 Absolute Lymphocytes (1.2 - 3.4 /CUMM) 4.3 H Absolute Monocytes (0.10 - 0.60 /CUMM) 0.4 Absolute Eosinophils (0.0 - 0.7 /CUMM) 0.2 Absolute Basophils (0.0 - 0.2 /CUMM) 0 PUBS MCHC (33.0 - 37.0 G/DL) 33.7 10/23 10/23 10/22 0850 0025 1826 Chemistry Sodium (137 - 145 mmol/L) 146 H Potassium (3.5 - 5.1 mmol/L) 4.1 Chloride (98 - 107 mmol/L) 115 H Carbon Dioxide (22 - 30 mmol/L) 28 Anion Gap (5 - 16) 3 L BUN (9 - 20 mg/dL) 14 Creatinine (0.7 - 1.2 mg/dL) 0.8 Estimated GFR (>60 ml/min) > 60 BUN/Creatinine Ratio (7 - 25 %) 17.5 Creatine Kinase (55 - 170 U/L) 43 L Troponin I (<0.11 ng/ml) 0.10 0.11 *H Cancelled Total PSA (0.00 - 4.00 ng/mL) 2.14 TSH Cancelled Thyroxine (T4) Cancelled Thyroxine Binding Indx Cancelled Hematology CBC w Diff NO MAN DIFF REQ WBC (4.8 - 10.8 /CUMM) 8.1 RBC (4.70 - 6.10 /CUMM) 3.89 L Hgb (14.0 - 18.0 G/DL) 12.5 L Hct (42 - 52 %) 36.4 L MCV (80.0 - 94.0 FL) 93.6 MCH (27.0 - 31.0 PG) 32.2 H RDW (11.5 - 14.5 %) 13.6 Plt Count (130 - 400 /CUMM) 177 MPV (7.4 - 10.4 FL) 7.8 Gran % (42.2 - 75.2 %) 49.3 Lymphocytes % (20.5 - 51.1 %) 42.8 Monocytes % (1.7 - 9.3 %) 5.0 Eosinophils % (0 - 5 %) 2.5 Basophils % (0.0 - 2.0 %) 0.4 Absolute Granulocytes (1.4 - 6.5 /CUMM) 4.0 Absolute Lymphocytes (1.2 - 3.4 /CUMM) 3.5 H Absolute Monocytes (0.10 - 0.60 /CUMM) 0.4 Absolute Eosinophils (0.0 - 0.7 /CUMM) 0.2 Absolute Basophils (0.0 - 0.2 /CUMM) 0 PUBS MCHC (33.0 - 37.0 G/DL) 34.3 Toxicology Digoxin (0.8 - 2.0 ng/mL) 0.7 L Serum Alcohol Cancelled Diagnostic Data EKG Results (10/23/2016) properly functioning electronic pacemaker and underlying atrial fibrillation, rare PVC. More ectopy when compared to previous tracing performed earlier today. CXR Results (10/22/2016): Elevated left hemidiaphragm with associated left basilar opacity. This may be chronic. The lungs are otherwise clear. Other Results Echocardiogram (10/24/2016): Normal size left ventricle. Moderate concentric left ventricular hypertrophy. Abnormal septal motion consistent with pacemaker activation. No other obvious regional wall motion abnormalities. Normal left ventricular systolic function. Estimated ejection fraction >60%. Right ventricle at upper limits of normal. Catheter/pacemaker wire in the right ventricular cavity. Moderate right atrial dilatation. Catheter/pacemaker wire in the right atrial cavity. Moderate left atrial dilatation. Mild mitral regurgitation. Mild aortic regurgitation. Moderate tricuspid regurgitation. Moderate pulmonary hypertension. Mild pulmonic regurgitation. Mildly dilated ascending aorta. CT abdomen/pelvis (10/22/2016): There is asymmetric hydroureteronephrosis of the left kidney with no clear evidence of a distal obstructing mass or stone. The urinary bladder is diffusely thickened and demonstrates a trabeculated appearance consistent with pseudodiverticulosis in the setting of prostatic hypertrophy. The possibility of a urothelial mass cannot be exclude on the basis of this examination. 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 Limited visualization of the intrathoracic structures demonstrates right atrial enlargement. Head CT (10/22/2016): No acute intracranial pathology. Cerebral atrophy. Small vessel disease as before. Assessment/Plan Assessment/Plan Mr. 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 He has already been evaluated by urology (Shyam Osullivan M.D.) and his urine has cleared with continuous bladder irrigation (CBI) and there is a plan is for a cystoscopy tomorrow. He has advanced dementia, as mentioned, but according to his has not expressed any complaints of chest discomfort, shortness of breath, etc. Suspect his modest troponin I elevation is on the basis of demand ischemia (LVH) , atrial fibrillation, etc. and not an acute coronary syndrome. Recommendations: * Continue telemetry admission. * Dementia, but no recent symptoms to suggest unstable angina pectoris so proceed with cystoscopy. * Depending on cystoscopy results, need to weigh the pros and cons of continued full anticoagulation, given frequent falls, questionable syncope, etc. * Pacemaker interrogation tomorrow. * Replete potassium. * Check magnesium. * DVT prophylaxis being addressed by anticoagulation for his chronic atrial fibrillation. Further recommendations will follow, Thank you. Consult Acknowledgment - Thank you for your consult request.
[2016-10-25 00:28] VITALS: BP 180/100
[2016-10-25 01:45] VITALS: BP 184/102
--- NOTE | 2016-10-25 07:10 | PN- Housestaff ---
LILLIAN BAY,HIRO 10/25/16 0710: Subjective Follow-up For: Altered mental status Bright red blood in urine Subjective: I saw and examined the patient today morning He is still at baseline. Overnight his BP is very high, a single dose of amlodipine was given which didnt really help much. Gave his losartan early. Although his EF is good, he is getting fluids from admission, on room air. So a portable xray is requested. Review of Systems Constitutional: Reports: see HPI. Comments: ROS cannot be appreciated as per the patient condition. Objective Last 24 Hrs of Vital Signs/I&O Vital Signs Date Time Temp Pulse Resp B/P Pulse O2 O2 Flow FiO2 Ox Delivery Rate 10/25 0145 72 184/102 10/25 0104 67 180/100 10/25 0028 97.9 64 20 180/100 97 Room Air 10/24 1704 67 160/88 10/24 1627 97.7 67 20 160/88 98 Room Air 10/24 0957 64 146/78 10/24 0956 64 146/78 10/24 0956 64 146/78 10/24 0906 97.7 64 20 146/78 98 Room Air 10/24 0800 98.6 108 20 110/60 918 Nasal Cannula Intake & Output 10/25 0800 10/25 0000 10/24 1600 Intake Total 400 600 880 Output Total 1550 Balance 400 600 -670 Intake, IV 400 400 400 Intake, Oral 0 200 480 Number 2 1 Bowel Movements Output, Urine 1550 Physical Exam General Appearance: Alert Skin: No Rashes, No Breakdown HEENT: Atraumatic, PERRLA Neck: Supple Cardiovascular: Normal S1, Normal S2 Lungs: crackles at the bases Abdomen: Soft, No Tenderness Extremities: No Clubbing, No Cyanosis, No Edema Vascular: Normal Pulses Current Medications: Current Medications Sig/Darnell Start time Last Medication Dose Route Stop Time Status Admin Acetaminophen 650 MG Q6P PRN 10/22 2145 AC PO Amlodipine Besylate 2.5 MG ONCE ONE 10/25 0045 DC 10/25 PO 10/25 0046 0104 Atorvastatin Calcium 40 MG DAILY 10/22 2156 AC 10/24 PO 0956 Cilostazol 100 MG BID 10/22 2200 AC 10/24 PO 2252 Dextrose/Sodium 1,000 ML Q20H 10/25 0000 AC 10/24 Chloride IV 2328 Digoxin 0.125 MG 1700 10/23 1700 AC 10/24 PO 1704 Donepezil HCl 10 MG DAILY 10/23 1000 AC 10/24 PO 0956 Losartan Potassium 100 MG DAILY 10/25 1000 AC PO Losartan Potassium 50 MG DAILY 10/23 1000 DC 10/24 PO 0956 Metoprolol Succinate 100 MG DAILY 10/23 1000 AC 10/24 PO 0957 Polyethylene Glycol 17 GM DAILY 10/23 1000 AC 10/24 PO 0957 Potassium Chloride 40 MEQ ONCE ONE 10/24 0930 DC 10/24 PO 10/24 0931 1014 Rivaroxaban 20 MG 1700 10/23 1700 DC 10/23 PO 1718 Senna/Docusate Sodium 2 TAB DAILY 10/23 1000 AC 10/24 PO 0956 Sodium Chloride 1,000 ML Q13H 10/23 0030 DC 10/24 IV 10/24 2355 1705 Tamsulosin HCl 0.4 MG DAILY 10/23 1000 AC 10/24 PO 0956 Lines/Diet/Fluids Lines: peripheral lines Assessment/Plan Assessment: Patient is a 80 year old [place] male with PMH HTN, HLD, atrial fibrillation s/p PPM implantation in 2007, CAD s/p stenting, claudication secondary to peripheral vascular disease and Alzheimer's dementia (non-verbal at baseline) who was brought in to [place] via ambulance due to increased altered mental status. Several complaints on presentation include altered mental status, frequent falls over the last 15 days without head trauma, dark urine, right-sided preference with decreased mobility of the right lower extremity and history of syncopal spells that last 15-20 minutes. ED Course: Vital signs showed T 97.4, HR 69, RR 18, BP 125/94 and O2 saturation of 95% on room air. Labs were significant for normocytic anemia to 13.3/39.5, K 3.3, Cl 108, troponin 0.11 and normal thyroid panel. Utox was negative. UA showed hazy clarity, trace protein, 25-50 RBCs, moderate bacteria and large Hgb. CXR showed elevated left hemidiaphragm with associated left basilar opacity. This may be chronic. The lungs are otherwise clear. Head CT showed no acute intracranial pathology. Cerebral atrophy. Small vessel disease as before. Patient is admitted to the telemetry floor and the following is the management: Progressive deconditioning with encephalopathy * Alzheimers dementia is gradually worsening which was more prononunced in the past 15days, being noncommunicative. * His work up is so far negative, appaerently his general condition is declining. * His is more realistic about the condtion, and if patient condition declines opting to choose STR placement. Elevated troponins in the setting of atrial fibrillation with PPM * Likely NSTEMI vs supply-demand mismatch * Continuous telemetry monitoring * Trend troponins -- 0.11-->0.11-->0.10 with no significant changes in EKG * Cardio consult with Dr. Waller, patient's heel edge inker machine * Resume all home cardiac medications, including Xarelto 20 mg PO daily, losartan 50 mg PO daily, digozin 0.125 mg PO daily and lipitor 40 mg PO daily * ECHO doesnt reveal any acute changes, will undergo pacemaker interrogation. * proBNP is 3020 Dark urine with blood * BPH could be the most probable reason as evident with trabeculated bladder. * UA showed 25-50 RBCs, large hgb * CT abdomen & pelvis without IV constrast demonstrated asymmetric hydroureteronephrosis of the left kidney with no clear evidence of a distal obstructing mass or stone. The urinary bladder is diffusely thickened and demonstrates a trabeculated appearance consistent with pseudodiverticulosis in the setting of prostatic hypertrophy. * Discontinued Xarelto and started on CBI with NS. * Underwent cystoscopy today which reveals large clot and frable vessels around prostate. * Urology on board, appreciate their recommendations. * Continue flomax 0.4 mg PO daily Syncope * Family reported this has been occuring for about 1 year * Possible arrhythmias. * Patient had an EEG 12/22/15 that showed no epileptiform activity (performed due to syncopal events as per family) * Continuous telemetry monitoring * Orthostatics are negative. * ECHO shows Abnormal septal motion consistent with pacemaker activation. EF >60 %. * PT evalated and recommended STR placement Atrial Fibrillation s/p PPM * Discontinued on xarelto secondary to dark urine - will restart as per cardio and urology recommendations. * May need pacemaker interrogation Hypokalemia * K 3.3 on admission without overt EKG changes * Repleted with 40 meq PO x 1 Klor HTN, HLD, CAD s/p stenting * Monitor vital signs Q shift * His Blood pressure is very high for the past 2days, today he is unable to take his Toprol XL secondary to lethargy - as BP is very high in the evening gave a dose of IV hydralazine 7.5mg once. * Increased losartan to 100mg as per the medical records. PVD * Continue cilostazol 100 mg PO BID and lipitor. Alzheimer's * Continue donepezil 10 mg PO daily obtained medical records Patient had a history of lung cancer underwent left lung lobectomy on 2007, no history of prostate cancer/urological cancer. DNR/DNI Diet: Regular Mild pain pathway DVTP: Xarelto Problem List: 1. Dementia 2. Elevated troponin 3. Acute delirium 4. Hypokalemia 5. Pacemaker 6. Syncope 7. Hematuria Pain Ratin Pain Location: n/a Pain Goal: Remain pain free Pain Plan: tylenol prn Tomorrow's Labs & Rationales: none Consulting Request: Consulting Specialty: Cardiology Consulting Physician: Dr. Waller Reason for Consult: Elevated troponin GARDENIA TRAN 10/25/16 1059: Attending MD Review Statement Attending Statement Attending MD Statement: examined this patient, discuss w/resident/PA/CREDIT RISK MANAGER, agreed w/resident/PA/CREDIT RISK MANAGER, discussed with family, reviewed EMR data (avail), discussed with nursing, discussed with case mgmt, reviewed images Attending Assessment/Plan: ASSESSMENT AND PLAN Mr. 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 #1 Toxic metabolic encephalopathy: delirium versus worsening of dementia. Patient afebrile, no leukocytosis, vitals stable, no evidence of infection currently, pain control, ammonia wnl. #2 multiple syncopal episodes in the past: Last episode 3 months back, patient was evaluated with EEG in the past. cardiology on board, pacemaker interrogation #3 Acute blood loss anemia 2/2 Abdoul colored heamturia, may have been related to trauma vs thickening of urniar bladder ?mass. Patient anticoagulation held. CT abdomen and pelvis hydroureteronephrosis. UROLOGY consulted. underwent CBI and for cystoscopy today. Resume a/c as per cardiology amd urology. discuss wioth family about risks/benefits of ac thearpy in this setting. #4 continue all his medications for CAD, HTN, A. fib, HLD, PVD, Alzheimer's with metoprolol, digoxin, losartan, tamsulosin, cilostazol, donepezil, atorvastatin. (hold a/c meds) #5 PT evaluation, case management consult for rehabilitation placement. Discussed goals of care with family, is realistic about worsening condition , wants to pursue investigations if beneficial for improvement, wants to make him more comfortable, DNR, DNI
[2016-10-25] MEDS ORDERED: COZAAR100 M1 PO (07:11)
[2016-10-25 08:31] VITALS: BP 164/80
--- NOTE | 2016-10-25 08:55 | RADIOLOGY REPORT ---
EXAMINATION: XR PORTABLE CHEST CLINICAL INFORMATION: Crackles. COMPARISON: CXR from 05/12/2014 and 10/22/2016. Abdomen CT from 10/22/2016. TECHNIQUE: Portable AP view of the chest was obtained. FINDINGS: Mild cardiomegaly without pulmonary edema. The single-lead cardiac pacemaker is in satisfactory position. The hazy opacity at the left lung base and pleural thickening at the lateral base are related to a small pleural effusion (as observed on the recent abdomen CT from 10/22/2016). The hazy opacity in the retrocardiac region probably represents superimposed atelectasis, as well. There are chronic linear/reticular opacities in the left lower lobe and lingula. Thoracic aorta is calcified. No acute skeletal findings. IMPRESSION: 1. Mild cardiomegaly without acute pulmonary edema. 2. Small left pleural effusion, similar in size compared to the recent abdomen CT of 10/22/2016.
--- NOTE | 2016-10-25 11:58 | Operative Report ---
Operative/Inv Procedure Report Surgery Date: 10/25/16 Name of Procedure: Cystoscopy. Fulguration of the prostatic bleeding vessels with the barrel loop. Evacuation of clot. Pre-Operative Diagnosis: Gross hematuria. Post-Operative Diagnosis: Same. A large prostate with friable mucosa with hypervascularity. Severely trabeculated bladder. Estimated Blood Loss: less than 50ml Surgeon/Technical Support Technician: ENRIQUE BAY, LINGLE-UROLOGY Anesthesia: moderate sedation Drains: 22 Palestinian three-way Hadley with normal saline for CBI. Condition: None Operative/Procedure Note Note: The patient was taken to the operating room and placed on the OR table in supine position. Timeout was performed, with the pt. awake, to correctly identify the patient, anesthesia, procedure, and IV antibiotics, and other pertinent perioperative information. After adequate anesthesia and antibiotics, the old Hadley catheter was removed. The patient was then placed in lithotomy stirrups using yellowfin stirrups. The patient was then draped and prepped in the usual surgical fashion. A 26 Palestinian standard resectoscope sheath with a 30 angle lens and the 24 Palestinian loop was inserted into the urethra, and then advanced into the bladder without difficulty. A FEW small clots, and bladder stones, were noted in the bladder, and were Ellix evacuated out. With a clearer vision, the prostate was noted to have an irregular and ratty surface with severely coapting lobes. Additionally, the prostate was taken to the hypervascular consistent with regrowth. Large amount of oozing was coming from the friable and hypervascular prostatic mucosa. Upon entering the bladder, it was thoroughly and systematically surveyed revealing no evidence of tumor, no evidence of stone, both orifices were difficult to find due to the severe trabeculation, in their orthotopic position with clear yellow reflux. The resectoscope with the barrel fulgurator, was then retracted to the level of the sana montanum. Under direct visualization the 24 Palestinian loop was then extended beyond the scope. Under direct visualization, and using the cutting current, the left lobe of the prostate was fulgurated from the 2:00 to the 6 o'clock position to the level of the fibromuscular capsule. The barrel loop was then extended once again using cutting current to resect the right side of the prostate from the 10:00 to the 6 o'clock in order to achieve good hemostasis. The bladder was then re-entered via the resectoscope, and the small amount of clots were irrigated out using tumey evacuation. The bladder was re-evaluating and noted to have no untoward injury. Additionally, the prostate channel was noted to have good hemostasis. The resectoscope was removed with the bladder full. A 22 Palestinian couvalier three-way Hadley catheter was inserted without difficulty draining clear fluid. The bladder was again copiously irrigated via the hadley to ensure patency/ The 30 mL balloon was then filled, and continuous bladder irrigation with normal saline was initiated. Clear and easy drainage of NS from the main port was confirmed with CBI. All sponge needle and instrument count were correct at the end of the case. The patient tolerated the procedure well and was then taken to the recovery room in satisfactory condition. Discharge Disposition: PACU CC: KENZEI NUNEZ MD
[2016-10-25 16:40] VITALS: BP 188/102
[2016-10-25 19:30] VITALS: BP 182/104
[2016-10-25 20:40] VITALS: BP 182/90
--- NOTE | 2016-10-25 21:09 | NUR ---
HYPERTENSION 19:00 PM: BP 182/104. HR 60S. UNABLE TO TAKE PO MEDS AT THIS TIME- LETHARGIC. DR MENDES MADE AWARE. REPORT GIVEN TO MISSY GLORIA.
[2016-10-26 01:14] VITALS: BP 180/80
[2016-10-26 01:22] VITALS: BP 142/86
[2016-10-26 01:45] VITALS: BP 162/80
--- NOTE | 2016-10-26 07:17 | PN- Housestaff ---
LILLIAN BAY,HIRO 10/26/16 0716: Subjective Follow-up For: altered mental status Worsening dementia Hematuria Subjective: I saw and examined the patient today morning He is at his baseline. Overnight his blood pressure elevated, received a dose of IV hydralazine 7.5mg and IV labetolol 10mg. Came down to 150/80 by morning. Reddish urine draining from the CBI. Pinkish urine came from afternoon. Review of Systems Constitutional: Reports: see HPI. Comments: ROS cannot be appreciated as per the patient condition. Objective Last 24 Hrs of Vital Signs/I&O Vital Signs Date Time Temp Pulse Resp B/P Pulse O2 O2 Flow FiO2 Ox Delivery Rate 10/26 0145 62 162/80 10/26 0129 73 180/80 10/26 0122 99.9 69 20 142/86 96 Room Air 10/26 0114 99.8 180/80 10/25 2305 65 192/90 10/25 2040 63 182/90 10/25 2007 67 182/104 10/25 1930 182/104 10/25 1640 97.2 64 20 188/102 96 Room Air 10/25 1439 Room Air Room Air 10/25 0831 97.0 80 20 164/80 95 Room Air 10/25 0800 Room Air 10/25 0737 66 154/88 Intake & Output 10/26 0800 10/26 0000 10/25 1600 Intake Total 0 0 6000 Output Total 250 7000 Balance 0 -250 -1000 Intake, Oral 0 0 Intake, Other 6000 Number 2 2 Bowel Movements Output, Urine 250 7000 Physical Exam General Appearance: Alert Skin: No Rashes, No Breakdown HEENT: Atraumatic, PERRLA, EOMI Neck: Supple Cardiovascular: Normal S1, Normal S2, No Murmurs Lungs: Clear to Auscultation, Normal Air Movement Abdomen: Normal Bowel Sounds, Soft, No Tenderness Neurological: resting tremor Increased tone Extremities: No Clubbing, No Cyanosis Vascular: Normal Pulses Current Medications: Current Medications Sig/Darnell Start time Last Medication Dose Route Stop Time Status Admin Acetaminophen 650 MG Q6P PRN 10/225 AC PO Atorvastatin Calcium 40 MG DAILY 10/22 2156 AC 10/24 PO 0956 Cilostazol 100 MG BID 10/22 2200 AC 10/24 PO 2252 Dextrose/Sodium 1,000 ML Q20H 10/25 0000 DC 10/24 Chloride IV 2328 Digoxin 0.125 MG 1700 10/23 1700 AC 10/24 PO 1704 Donepezil HCl 10 MG DAILY 10/23 1000 AC 10/24 PO 0956 Fentanyl Citrate 100 MCG .STK-MED ONE 10/25 0815 DC IM 10/25 0816 Hydralazine HCl 7.5 MG ONCE ONE 10/25 2315 DC 10/25 IV 10/25 2316 2305 Hydralazine HCl 7.5 MG ONCE ONE 10/25 1945 DC 10/25 IV 10/25 1942006 Labetalol HCl 10 MG ONCE ONE 10/26 0130 DC 10/26 IV 10/26 0131 0129 Losartan Potassium 100 MG DAILY 10/25 1000 AC 10/25 PO 0737 Metoprolol Succinate 100 MG DAILY 10/23 1000 AC 10/24 PO 0957 Metoprolol Tartrate 5 MG ONCE ONE 10/26 0115 DC IV 10/26 0130 Polyethylene Glycol 17 GM DAILY 10/23 1000 AC 10/24 PO 0957 Senna/Docusate Sodium 2 TAB DAILY 10/23 1000 AC 10/24 PO 0956 Tamsulosin HCl 0.4 MG DAILY 10/23 1000 AC 10/24 PO 0956 Last 24 Hrs of Lab/Onel Results Last 24 Hrs of Labs/Mics: Laboratory Tests 10/26/16 1024: Anion Gap 6, Estimated GFR > 60, BUN/Creatinine Ratio 13.8 10/26/16 0626: CBC w Diff NO MAN DIFF REQ, RBC 4.22 L, MCV 94.4 H, MCH 31.7 H, RDW 13.6, MPV 8.7, Gran % 62.2, Lymphocytes % 31.0, Monocytes % 4.4, Eosinophils % 1.9, Basophils % 0.5, Absolute Granulocytes 10.6 H, Absolute Lymphocytes 5.3 H, Absolute Monocytes 0.7 H, Absolute Eosinophils 0.3, Absolute Basophils 0.1, PUBS MCHC 33.6 Microbiology 10/26 1059 URINE ROUT: Urine Culture - ORD Assessment/Plan Assessment: Patient is a 80 year old German male with PMH HTN, HLD, atrial fibrillation s/p PPM implantation in 2007, CAD s/p stenting, claudication secondary to peripheral vascular disease and Alzheimer's dementia (non-verbal at baseline) who was brought in to [place] via ambulance due to increased altered mental status. Several complaints on presentation include altered mental status, frequent falls over the last 15 days without head trauma, dark urine, right-sided preference with decreased mobility of the right lower extremity and history of syncopal spells that last 15-20 minutes. ED Course: Vital signs showed T 97.4, HR 69, RR 18, BP 125/94 and O2 saturation of 95% on room air. Labs were significant for normocytic anemia to 13.3/39.5, K 3.3, Cl 108, troponin 0.11 and normal thyroid panel. Utox was negative. UA showed hazy clarity, trace protein, 25-50 RBCs, moderate bacteria and large Hgb. CXR showed elevated left hemidiaphragm with associated left basilar opacity. This may be chronic. The lungs are otherwise clear. Head CT showed no acute intracranial pathology. Cerebral atrophy. Small vessel disease as before. Patient is admitted to the telemetry floor and the following is the management: Progressive deconditioning with encephalopathy * Alzheimers dementia is gradually worsening which was more prononunced in the past 15days, being noncommunicative. * His work up is so far negative, appaerently his general condition is declining. * His is more realistic about the condtion, and if patient condition declines opting to choose STR placement. Elevated troponins in the setting of atrial fibrillation with PPM * Likely NSTEMI vs supply-demand mismatch * Continuous telemetry monitoring * Trend troponins -- 0.11-->0.11-->0.10 with no significant changes in EKG * Cardio consult with Dr. Waller, patient's smoke eater * Resume all home cardiac medications, including Xarelto 20 mg PO daily, losartan 50 mg PO daily, digozin 0.125 mg PO daily and lipitor 40 mg PO daily * ECHO doesnt reveal any acute changes, will undergo pacemaker interrogation. * proBNP is 3020 Dark urine with blood * BPH could be the most probable reason as evident with trabeculated bladder. * UA showed 25-50 RBCs, large hgb * CT abdomen & pelvis without IV constrast demonstrated asymmetric hydroureteronephrosis of the left kidney with no clear evidence of a distal obstructing mass or stone. The urinary bladder is diffusely thickened and demonstrates a trabeculated appearance consistent with pseudodiverticulosis in the setting of prostatic hypertrophy. * Restarted on xarelto today. * started on finasteride 5mg daily, will stop CBI tomorrow. * Continue flomax 0.4 mg PO daily * Planning to discharge on indwelling hadley catheter. Syncope * Family reported this has been occuring for about 1 year * Possible arrhythmias. * Patient had an EEG 12/22/15 that showed no epileptiform activity (performed due to syncopal events as per family) * Continuous telemetry monitoring * Orthostatics are negative. * ECHO shows Abnormal septal motion consistent with pacemaker activation. EF >60 %. * PT evalated and recommended STR placement Atrial Fibrillation s/p PPM * Discontinued on xarelto secondary to dark urine - will restart as per cardio and urology recommendations. * Undergoing pacemaker interrogation today. Hypokalemia * K 3.3 on admission without overt EKG changes * Repleted with 40 meq PO x 1 Klor HTN, HLD, CAD s/p stenting * Monitor vital signs Q shift * His Blood pressure is very high for the past 2days, Overnight received IV hydralazine 7.5mg and labetalol 10mg IV. * Increased losartan to 100mg as per the medical records. PVD * Continue cilostazol 100 mg PO BID and lipitor. Alzheimer's * Continue donepezil 10 mg PO daily obtained medical records Patient had a history of lung cancer underwent left lung lobectomy on 2007, no history of prostate cancer/urological cancer. DNR/DNI Diet: Regular Mild pain pathway DVTP: Xarelto Problem List: 1. Dementia 2. Elevated troponin 3. Acute delirium 4. Hypokalemia 5. Pacemaker 6. Syncope 7. Hematuria Pain Ratin Pain Location: n/a Pain Goal: Remain pain free Pain Plan: Tylenol PRN Tomorrow's Labs & Rationales: cbc to monitor Hb bep to monitor renal function Consulting Request: Consulting Specialty: Cardiology Consulting Physician: Dr. Waller Reason for Consult: Elevated troponin GARDENIA TRAN 10/26/16 1322: Attending MD Review Statement Attending Statement Attending MD Statement: examined this patient, discuss w/resident/PA/SCRAP METAL COLLECTOR, agreed w/resident/PA/SCRAP METAL COLLECTOR, discussed with family, reviewed EMR data (avail), discussed with nursing, discussed with case mgmt, reviewed images Attending Assessment/Plan: Mr. 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 #1 Toxic metabolic encephalopathy: delirium versus worsening of dementia. Patient afebrile, no leukocytosis, vitals stable, no evidence of infection currently, pain control, ammonia wnl. #2 multiple syncopal episodes in the past: Last episode 3 months back, patient was evaluated with EEG in the past. cardiology on board, pacemaker interrogation today, resume a/c. #3 Acute blood loss anemia 2/2 Abdoul colored heamturia, may have been related to trauma vs thickening of urniar bladder ?mass. Patient anticoagulation to be resumed as per cardio. CT abdomen and pelvis hydroureteronephrosis. UROLOGY on board, s/p cystoscopy with increased vascualrity and friable vessels around prostate. CBI ongoing as per urology, can d/c soon. Resume a/c as per cardiology amd urology. discussed with family about risks/benefits of ac thearpy in this setting. family agrees to a/c. check cbc in am. #4 continue all his medications for CAD, HTN, A. fib, HLD, PVD, Alzheimer's with metoprolol, digoxin, losartan, tamsulosin, cilostazol, donepezil, atorvastatin. #5 PT evaluation, case management consult for rehabilitation placement. Discussed goals of care with family, is realistic about worsening condition , wants to pursue investigations if beneficial for improvement, wants to make him more comfortable, DNR, DNI.
[2016-10-26 08:19] LABS: ABSOLUTE BASOPHIL COUNT 0.1 /CUMM (0.0-0.2); ABSOLUTE EOSINOPHIL COUNT 0.3 /CUMM (0.0-0.7); ABSOLUTE GRANULOCYTE CT 10.6 /CUMM (1.4-6.5); ABSOLUTE LYMPH COUNT 5.3 /CUMM (1.2-3.4); ABSOLUTE MONOCYTE COUNT 0.7 /CUMM (0.10-0.60); BASOPHIL % 0.5 % (0.0-2.0); EOSINOPHIL % 1.9 % (0-5); GRANULOCYTE % 62.2 % (42.2-75.2); HEMATOCRIT 39.8 % (42-52); MEAN CORPUSCULAR HGB 31.7 PG (27.0-31.0); MEAN CORPUSCULAR HGB CONC 33.6 G/DL (33.0-37.0); MEAN CORPUSCULAR VOLUME 94.4 FL (80.0-94.0); MEAN PLATELET VOLUME 8.7 FL (7.4-10.4); RBC DISTRIBUTION WIDTH 13.6 % (11.5-14.5); RED BLOOD CELL CT 4.22 /CUMM (4.70-6.10)
[2016-10-26 08:45] LABS: PLATELET COUNT 167 /CUMM (130-400)
[2016-10-26 09:07] VITALS: BP 156/76
--- NOTE | 2016-10-26 10:48 | PN- Cardiology ---
Subjective Subjective: Cannot give any history given advanced dementia. Underwent cystoscopy, fulguration of prostatic bleeding vessels with the barrel loop and evacuation of clot for gross hematuria on 10/25/2016 with findings of a large prostate with friable mucosa, hypervascularity, and a severely trabeculated bladder, but still has hematuria. Properly functioning pacemaker on telemetry overnight. Objective Vital Signs and I&Os Vital Signs Date Time Temp Pulse Resp B/P Pulse O2 O2 Flow FiO2 Ox Delivery Rate 10/26 928 65 156/76 10/26 928 65 156/76 10/26 0928 65 156/76 10/26 0907 99.2 65 20 156/76 95 Room Air 10/26 0145 62 162/80 10/26 0129 73 180/80 10/26 0122 99.9 69 20 142/86 96 Room Air 10/26 0114 99.8 180/80 10/25 2305 65 192/90 10/25 2040 63 182/90 10/25 2007 67 182/104 10/25 1930 182/104 10/25 1640 97.2 64 20 188/102 96 Room Air 10/25 1439 Room Air Room Air Intake & Output 10/26 1600 10/26 0800 10/26 0000 10/25 1600 10/25 0800 10/25 0000 Intake Total 0 0 6000 400 600 Output Total 250 7000 Balance 0 -250 -1000 400 600 Intake, IV 400 400 Intake, Oral 0 0 0 200 Intake, Other 6000 Number 2 2 2 1 Bowel Movements Output, Urine 250 7000 Physical Exam: Well-developed, well-nourished elderly male in no acute distress. Vital signs: See above. HEENT: Normocephalic, atraumatic, EOMI, slightly dry mucous membranes. Neck: No JVD, no bruits. Lungs: Decreased breath sounds left base otherwise clear. Heart: S1, S2 and grade 1-2/6 systolic murmur left sternal border. No gallop or rub appreciated. PMI fifth ICS at [facility]. Abdomen: Soft, nontender, positive bowel sounds. Extremities: No edema. Current Medications: Current Medications Sig/Darnell Start time Last Medication Dose Route Stop Time Status Admin Acetaminophen 650 MG Q6P PRN 10/22 2144 AC PO Atorvastatin Calcium 40 MG DAILY 10/23 2155 AC 10/26 PO 0928 Cilostazol 100 MG BID 10/22 2199 AC 10/26 PO 0929 Digoxin 0.125 MG 1700 10/23 1700 AC 10/24 PO 1704 Donepezil HCl 10 MG DAILY 10/23 1000 AC 10/26 PO 0929 Hydralazine HCl 7.5 MG ONCE ONE 10/25 2315 DC 10/25 IV 10/25 231 2305 Hydralazine HCl 7.5 MG ONCE ONE 10/25 1945 DC 10/25 IV 10/25 1942006 Labetalol HCl 10 MG ONCE ONE 10/26 0130 DC 10/26 IV 10/26 0131 0129 Losartan Potassium 100 MG DAILY 10/25 1000 AC 10/26 PO 0928 Metoprolol Succinate 100 MG DAILY 10/23 1000 AC 10/26 PO 0929 Metoprolol Tartrate 5 MG ONCE ONE 10/26 0115 DC IV 10/26 0130 Polyethylene Glycol 17 GM DAILY 10/23 1000 AC 10/24 PO 0957 Senna/Docusate Sodium 2 TAB DAILY 10/23 1000 AC 10/24 PO 0956 Tamsulosin HCl 0.4 MG DAILY 10/23 1000 AC 10/26 PO 0929 Results Last 48 Hrs of Labs/Mics: Just about taking too long Laboratory Tests 10/26/16 1024: Sodium Pending, Potassium Pending, Chloride Pending, Carbon Dioxide Pending, Anion Gap Pending, BUN Pending, Creatinine Pending, BUN/Creatinine Ratio Pending 10/26/16 0626: CBC w Diff NO MAN DIFF REQ, RBC 4.22 L, MCV 94.4 H, MCH 31.7 H, RDW 13.6, MPV 8.7, Gran % 62.2, Lymphocytes % 31.0, Monocytes % 4.4, Eosinophils % 1.9, Basophils % 0.5, Absolute Granulocytes 10.6 H, Absolute Lymphocytes 5.3 H, Absolute Monocytes 0.7 H, Absolute Eosinophils 0.3, Absolute Basophils 0.1, PUBS MCHC 33.6 Assessment/Plan Assessment/Plan Mr. 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 Suspect his modest troponin I elevation is on the basis of demand ischemia (LVH) , atrial fibrillation, etc. and not an acute coronary syndrome. His permanent pacemaker will be interrogated today and further recommendations will follow. Unfortunately, he still has hematuria despite his today's cystoscopy, etc. The plan will be to notify urology of the continued hematuria for further recommendations. Continue telemetry? Yes
--- NOTE | 2016-10-26 14:22 | PN- Urology ---
Surgical Brief Attending Note Brief Attending Note: Pt appears to be sleeping comfortably: vss afebrile. abd.soft ; CVI clear at slow rate. PLAN: stop CBI and irrigate manually with 50cc sterile water q 4 hrs prn gross hematuria/clot. DO NOT remove hadley.
[2016-10-26] MEDS ORDERED: PROSCAR5 M1 PO (14:43)
[2016-10-26 16:38] VITALS: BP 158/68
[2016-10-27 00:17] VITALS: BP 118/70
--- NOTE | 2016-10-27 07:13 | PN- Housestaff ---
See Addendum Subjective Follow-up For: Advanced dementia Altered mental status Hematuria BPH with bladder trabeculations Complaints: patient noncommunicative Tele-Events Since Last Visit: A. fib 65 -66 bpm has a lot of PVCs Subjective: Reviewed the patient lying comfortably on the bed the patient is nonresponsive at baseline. He is not in acute distress. Patient commented yesterday to be on every 4 hours 50 mL bladder flushes. Review of Systems Constitutional: Denies: chills, fever. Comments: Patient cannot respond to review of system questions Objective Last 24 Hrs of Vital Signs/I&O Vital Signs Date Time Temp Pulse Resp B/P Pulse O2 O2 Flow FiO2 Ox Delivery Rate 10/27 09 98.6 62 20 120/66 97 Room Air 10/27 0017 98.7 64 20 118/70 96 10/26 1711 64 10/26 1638 98.6 64 18 158/68 94 Room Air Intake & Output 10/27 1600 10/27 0800 10/27 0000 Intake Total 400 Output Total 850 950 Balance -850 -550 Intake, Oral 400 Number 3 3 Bowel Movements Output, Urine 850 950 Physical Exam General Appearance: Alert Skin: No Rashes HEENT: Atraumatic, Mucous Membr. moist/pink Neck: Supple Cardiovascular: Normal S1, Normal S2 Lungs: Clear to Auscultation, Normal Air Movement Abdomen: Normal Bowel Sounds, Soft, No Tenderness Current Medications: Current Medications Sig/Darnell Start time Last Medication Dose Route Stop Time Status Admin Acetaminophen 650 MG .STK-MED ONE 10/27 2055 DC PO 10/26 2056 Acetaminophen 650 MG Q6P PRN 10/22 2144 AC 10/26 PO 2058 Atorvastatin Calcium 40 MG DAILY 10/22 215 AC 10/26 PO 927 Cilostazol 100 MG BID 10/22 2200 AC 10/26 PO 2055 Digoxin 0.125 MG 1700 10/23 1700 AC 10/26 PO 1711 Donepezil HCl 10 MG DAILY 10/23 1000 AC 10/26 PO 09 Finasteride 5 MG DAILY 10/26 1138 AC 10/26 PO 1334 Losartan Potassium 100 MG DAILY 10/25 1000 AC 10/26 PO 0928 Magnesium Oxide 400 MG ONE ONE 10/26 1130 DC 10/26 PO 10/26 1131 1334 Metoprolol Succinate 100 MG DAILY 10/23 1000 AC 10/26 PO 0929 Polyethylene Glycol 17 GM DAILY 10/23 1000 AC 10/24 PO 0957 Potassium Chloride 40 MEQ ONCE ONE 10/26 1130 DC 10/26 PO 10/26 1131 1334 Rivaroxaban 20 MG 1700 10/26 1700 AC 10/26 PO 2055 Senna/Docusate Sodium 2 TAB DAILY 10/23 1000 AC 10/24 PO 0956 Tamsulosin HCl 0.4 MG DAILY 10/23 1000 AC 10/26 PO 0929 Last 24 Hrs of Lab/Onel Results Last 24 Hrs of Labs/Mics: Laboratory Tests 10/27/16 0640: Anion Gap 7, Estimated GFR > 60, BUN/Creatinine Ratio 15.7, CBC w Diff Pending, WBC Pending, RBC Pending, Hgb Pending, Hct Pending, MCV Pending, MCH Pending, RDW Pending, Plt Count Pending, MPV Pending, Gran % Pending, Lymphocytes % Pending, Monocytes % Pending, Eosinophils % Pending, Basophils % Pending, Absolute Granulocytes Pending, Absolute Lymphocytes Pending, Absolute Monocytes Pending, Absolute Eosinophils Pending, Absolute Basophils Pending, PUBS MCHC Pending 10/26/16 1024: Anion Gap 6, Estimated GFR > 60, BUN/Creatinine Ratio 13.8 Microbiology 10/26 1059 URINE ROUT: Urine Culture - COLB Assessment/Plan Assessment: Patient is a 80 year old Montenegrin male with PMH HTN, HLD, atrial fibrillation s/p PPM implantation in 2007, CAD s/p stenting, claudication secondary to peripheral vascular disease and Alzheimer's dementia (non-verbal at baseline) who was brought in to [place] via ambulance due to increased altered mental status. Several complaints on presentation include altered mental status, frequent falls over the last 15 days without head trauma, dark urine, right-sided preference with decreased mobility of the right lower extremity and history of syncopal spells that last 15-20 minutes. Progressive deconditioning with encephalopathy * Alzheimers dementia is gradually worsening which was more prononunced in the past 15days, being noncommunicative. * His work up is so far negative, appaerently his general condition is declining. * His is more realistic about the condtion, and if patient condition declines opting to choose STR placement. 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 * proBNP is 3020 Dark urine with blood * BPH could be the most probable reason as evident with trabeculated bladder. * UA showed 25-50 RBCs, large hgb * CT abdomen & pelvis without IV constrast demonstrated asymmetric hydroureteronephrosis of the left kidney with no clear evidence of a distal obstructing mass or stone. The urinary bladder is diffusely thickened and demonstrates a trabeculated appearance consistent with pseudodiverticulosis in the setting of prostatic hypertrophy. * Restarted on xarelto today. * started on finasteride 5mg daily, will stop CBI tomorrow. * Continue flomax 0.4 mg PO daily * Planning to discharge on indwelling hadley catheter. Syncope * Family reported this has been occuring for about 1 year * Possible arrhythmias. * Patient had an EEG 12/22/15 that showed no epileptiform activity (performed due to syncopal events as per family) * Continuous telemetry monitoring * ECHO shows Abnormal septal motion consistent with pacemaker activation. EF >60 %. * PT evalated and recommended STR placement Atrial Fibrillation s/p PPM * Discontinued on xarelto secondary to dark urine - will restart as per cardio and urology recommendations. Hypokalemia * K 3.7 on admission without overt EKG changes * Repleted with 40 meq PO x 1 Klor HTN, HLD, CAD s/p stenting * Monitor vital signs Q shift * His Blood pressure is very high for the past 2days, Overnight received IV hydralazine 7.5mg and labetalol 10mg IV. * Increased losartan to 100mg as per the medical records. PVD * Continue cilostazol 100 mg PO BID and lipitor. Alzheimer's * Continue donepezil 10 mg PO daily DNR/DNI Diet: Regular Mild pain pathway DVTP: Xarelto Problem List: 1. Hematuria 2. Syncope 3. Pacemaker 4. Hypokalemia 5. Dementia Pain Ratin Pain Location: Patient not responsive cannot locate or respond Pain Goal: Remain pain free Pain Plan: When necessary pain meds Tomorrow's Labs & Rationales: None DVT/Prophylaxis: pharmacological Consulting Request: Consulting Specialty: Cardiology Consulting Physician: Dr. Waller Reason for Consult: Elevated troponin Discharge Plan Discharge Disposition: STR/NH Stable for Discharge? Yes Anticipated Discharge (Day): today If Discharged Today/In 24 Hrs: W-10/discharge paper done, DC summary done, CMR done
[2016-10-27 08:22] LABS: ABSOLUTE BASOPHIL COUNT 0.1 /CUMM (0.0-0.2); ABSOLUTE EOSINOPHIL COUNT 0.4 /CUMM (0.0-0.7); ABSOLUTE LYMPH COUNT 4.1 /CUMM (1.2-3.4); ABSOLUTE MONOCYTE COUNT 0.7 /CUMM (0.10-0.60); BASOPHIL % 0.5 % (0.0-2.0); EOSINOPHIL % 3.6 % (0-5); MEAN CORPUSCULAR HGB 31.7 PG (27.0-31.0); MEAN CORPUSCULAR HGB CONC 33.8 G/DL (33.0-37.0); MEAN CORPUSCULAR VOLUME 93.9 FL (80.0-94.0); MEAN PLATELET VOLUME 7.7 FL (7.4-10.4); PLATELET COUNT 195 /CUMM (130-400); RBC DISTRIBUTION WIDTH 13.3 % (11.5-14.5); RED BLOOD CELL CT 3.94 /CUMM (4.70-6.10); WHITE BLOOD CELL COUNT 12.3 /CUMM (4.8-10.8)
[2016-10-27 09:00] VITALS: BP 120/66
[2016-10-27 16:35] VITALS: BP 117/63
[2016-10-27 22:12] VITALS: BP 118/62
[2016-10-28 06:43] VITALS: BP 148/80
[2016-10-28 08:24] LABS: ABSOLUTE BASOPHIL COUNT 0.1 /CUMM (0.0-0.2); ABSOLUTE EOSINOPHIL COUNT 0.4 /CUMM (0.0-0.7); ABSOLUTE GRANULOCYTE CT 5.3 /CUMM (1.4-6.5); ABSOLUTE LYMPH COUNT 3.4 /CUMM (1.2-3.4); ABSOLUTE MONOCYTE COUNT 0.6 /CUMM (0.10-0.60); BASOPHIL % 0.7 % (0.0-2.0); MEAN CORPUSCULAR HGB 31.9 PG (27.0-31.0); MEAN CORPUSCULAR HGB CONC 34.5 G/DL (33.0-37.0); MEAN CORPUSCULAR VOLUME 92.3 FL (80.0-94.0); MEAN PLATELET VOLUME 7.8 FL (7.4-10.4); PLATELET COUNT 184 /CUMM (130-400); RBC DISTRIBUTION WIDTH 13.6 % (11.5-14.5); RED BLOOD CELL CT 3.58 /CUMM (4.70-6.10); WHITE BLOOD CELL COUNT 9.8 /CUMM (4.8-10.8)
[2016-10-28 09:03] LABS: GRANULOCYTE % 54.8 % (42.2-75.2); HEMATOCRIT 33.1 % (42-52)
--- NOTE | 2016-10-28 09:22 | PN- Housestaff ---
JAZZ BAY,RUSTAM 10/28/16 0921: Subjective Follow-up For: Advanced dementia Altered mental status Hematuria BPH Complaints: pt unable to provide hx Subjective: Patient lying comfortably in bed, patient has advanced dementia, limiting his capacity to respond to questions ,has Hadley in place, with gross hematuria, vitals have been stable otherwise, no overnight issues. Review of Systems Constitutional: Reports: no symptoms, see HPI. Cardiovascular: Reports: no symptoms. Respiratory: Reports: no symptoms. Gastrointestinal: Reports: no symptoms. Genitourinary: Reports: hematuria. Skin: Reports: no symptoms. Neurological/Psychological: Reports: see HPI. Hematologic/Endocrine: Reports: no symptoms. Objective Last 24 Hrs of Vital Signs/I&O Vital Signs Date Time Temp Pulse Resp B/P Pulse O2 O2 Flow FiO2 Ox Delivery Rate 10/28 1713 66 120/60 10/28 1454 98.0 68 20 126/60 98 Room Air 10/28 1214 64 142/84 10/28 1212 64 142/84 10/28 1210 64 142/84 10/28 0643 98.2 65 20 148/80 98 04 2212 97.5 68 20 118/62 97 Room Air Intake & Output 10/28 1600 10/28 0800 10/28 0000 Intake Total 360 Output Total 400 300 Balance -400 60 Intake, Oral 360 Number 1 2 2 Bowel Movements Output, Urine 400 300 Physical Exam General Appearance: Cooperative, No Acute Distress, demented at baseline Other Physical Findings: Skin: No Rashes HEENT: Atraumatic, Mucous Membr. moist/pink Neck: Supple Cardiovascular: Normal S1, Normal S2 Lungs: Clear to Auscultation, Normal Air Movement Abdomen: Normal Bowel Sounds, Soft, No Tenderness Hadley catheter in place, with urine collected that is grossly bloody Current Medications: Current Medications Sig/Darnell Start time Last Medication Dose Route Stop Time Status Admin Acetaminophen 650 MG .STK-MED ONE 10/28 417 DC PO 10/28 418 Acetaminophen 650 MG Q6P PRN 10/22 2145 AC 10/28 PO 0423 Atorvastatin Calcium 40 MG DAILY 10/22 2156 AC 10/28 PO 1225 Cilostazol 100 MG BID 10/22 2200 AC 10/28 PO 1225 Digoxin 0.125 MG 1700 10/23 1700 AC 10/28 PO 1713 Donepezil HCl 10 MG DAILY 10/23 1000 AC 10/28 PO 1215 Finasteride 5 MG DAILY 10/26 1138 AC 10/28 PO 1210 Losartan Potassium 100 MG DAILY 10/25 1000 AC 10/28 PO 1210 Metoprolol Succinate 100 MG DAILY 10/23 1000 AC 10/28 PO 1212 Polyethylene Glycol 17 GM DAILY 10/23 1000 AC 10/28 PO 1214 Rivaroxaban 20 MG 1700 10/26 1700 AC 10/28 PO 1714 Senna/Docusate Sodium 2 TAB DAILY 10/23 1000 AC 10/28 PO 1211 Tamsulosin HCl 0.4 MG DAILY 10/23 1000 AC 10/28 PO 1214 Last 24 Hrs of Lab/Onel Results Last 24 Hrs of Labs/Mics: Laboratory Tests 10/28/16 0650: CBC w Diff NO MAN DIFF REQ, RBC 3.58 L, MCV 92.3, MCH 31.9 H, RDW 13.6, MPV 7.8, Gran % 54.8, Lymphocytes % 34.9, Monocytes % 5.6, Eosinophils % 4.0, Basophils % 0.7, Absolute Granulocytes 5.3, Absolute Lymphocytes 3.4, Absolute Monocytes 0.6, Absolute Eosinophils 0.4, Absolute Basophils 0.1, PUBS MCHC 34.5 Assessment/Plan Assessment: Patient is a 80 year old [place] male with PMH HTN, HLD, atrial fibrillation s/p PPM implantation in 2007, CAD s/p stenting, claudication secondary to peripheral vascular disease and Alzheimer's dementia (non-verbal at baseline) who was brought in to [place] via ambulance due to increased altered mental status. Several complaints on presentation include altered mental status, frequent falls over the last 15 days without head trauma, dark urine, right-sided preference with decreased mobility of the right lower extremity and history of syncopal spells that last 15-20 minutes. Progressive deconditioning with encephalopathy * Alzheimers dementia is gradually worsening which was more prononunced in the past 2 weeks, being noncommunicative. * His work up is so far negative, appaerently his general condition is declining. * His is more realistic about the condtion, and if patient condition declines, opting to choose STR placement. Elevated troponins in the setting of atrial fibrillation with PPM * Likely NSTEMI vs supply-demand mismatch * ACS ruled out * Cardio consult with Dr. Waller, patient's makeup sales consultant appreciated * Resumed all home cardiac medications, including Xarelto 20 mg PO daily, losartan 50 mg PO daily, digozin 0.125 mg PO daily and lipitor 40 mg PO daily. * Patient has gross hematuria with Xarelto ordered. Need to assess any changes in consultation with makeup sales consultant. * ECHO doesnt reveal any acute changes, patient was supposed to have pacemaker interrogation yesterday. * proBNP was 3020 Dark urine with blood * BPH could be the most probable reason as evident with trabeculated bladder. * UA showed 25-50 RBCs, large hgb * CT abdomen & pelvis without IV constrast demonstrated asymmetric hydroureteronephrosis of the left kidney with no clear evidence of a distal obstructing mass or stone. The urinary bladder is diffusely thickened and demonstrates a trabeculated appearance consistent with pseudodiverticulosis in the setting of prostatic hypertrophy. * patient on xarelto. need to reassess the situation of hematuria /xarelto again tomorrow. * continue finasteride 5mg daily * Continue flomax 0.4 mg PO daily * Intermittent losses with sterile water for gross hematuria and clots ordered * Planning to discharge on indwelling hadley catheter. Syncope * Family reported this has been occuring for about 1 year * Possible arrhythmias. * Patient had an EEG 12/22/15 that showed no epileptiform activity (performed due to syncopal events as per family) * Continuous telemetry monitoring * ECHO shows Abnormal septal motion consistent with pacemaker activation. EF >60 %. * PT evalated and recommended STR placement Atrial Fibrillation s/p PPM * Initially discontinued on xarelto secondary to dark urine - restarted as per cardio and urology recommendations. Hypokalemia * K 3.7 on admission without overt EKG changes HTN, HLD, CAD s/p stenting * Monitor vital signs Q shift * His Blood pressure ihas been stable now after restarting his home meds PVD * Continue cilostazol 100 mg PO BID and lipitor. Alzheimer's * Continue donepezil 10 mg PO daily DNR/DNI Diet: Regular Mild pain pathway DVTP: Xarelto Problem List: 1. Dementia 2. Hematuria Pain Ratin Pain Location: - Pain Goal: Remain pain free Pain Plan: prn Tomorrow's Labs & Rationales: CBC, BEP, INR to f/u hematuria and renal function, bleeding tendency Consulting Request: Consulting Specialty: Cardiology Consulting Physician: Dr. Waller Reason for Consult: Elevated troponin LEX RODRIGUEZ MD 10/28/16 1504: Attending MD Review Statement Attending Statement Attending MD Statement: examined this patient, discuss w/resident/PA/DETENTION DEPUTY, agreed w/resident/PA/DETENTION DEPUTY, reviewed EMR data (avail) Attending Assessment/Plan: Patient sleeping and non-verbal at baseline. Appears comfortable. Abdoul hematuria still present in Hadley bag. Discontinue CBI, start Hadley flushes as outlined by urology, monitor CBC, Xarelto restarted, continue home medications, continue to monitor
--- NOTE | 2016-10-28 14:12 | NUR ---
FLOEY IRRIGATED WITH 50ML OF NS, NO APPARENT CLOTS WITH FLUSH, DRAINING APPROPRIATELY
[2016-10-28 14:54] VITALS: BP 126/60
[2016-10-28 21:44] VITALS: BP 122/72
[2016-10-29 06:41] VITALS: BP 142/70
--- NOTE | 2016-10-29 07:34 | PN- Housestaff ---
JAZZ BAY,RUSTAM 10/29/16 0733: Subjective Follow-up For: Advanced dementia Altered mental status Hematuria BPH Complaints: pt unable to provide hx Subjective: Patient lying comfortably in bed, patient has advanced dementia, limiting his capacity to respond to questions ,has Hadley in place, hematuria better with dark yellow colored urine in the tube, vitals have been stable otherwise, no overnight issues. Review of Systems Constitutional: Reports: no symptoms. Comments: Review of systems cannot be done due to patient's condition. Objective Last 24 Hrs of Vital Signs/I&O Vital Signs Date Time Temp Pulse Resp B/P Pulse O2 O2 Flow FiO2 Ox Delivery Rate 10/29 1727 64 156/78 10/29 1544 97.8 65 18 140/70 97 Room Air 10/29 1201 64 138/84 10/29 1200 64 138/84 10/29 1159 64 138/86 10/29 0641 97.9 67 18 142/70 95 Room Air 10/28 2144 97.8 65 20 122/72 95 Room Air Intake & Output 10/29 1600 10/29 0800 10/29 0000 Intake Total 600 120 Output Total 650 Balance 600 -650 120 Intake, Oral 600 120 Number 2 1 1 Bowel Movements Output, Urine 650 Physical Exam General Appearance: Cooperative, No Acute Distress, baseline dementia, but more animated than yesterday Other Physical Findings: Skin: No Rashes HEENT: Atraumatic, Mucous Membr. moist/pink Neck: Supple Cardiovascular: Normal S1, Normal S2 Lungs: Clear to Auscultation, Normal Air Movement Abdomen: Normal Bowel Sounds, Soft, No Tenderness Hadley catheter in place, with bloody urine collected, dark yellow urine in the tube though. Current Medications: Current Medications Sig/Darnell Start time Last Medication Dose Route Stop Time Status Admin Acetaminophen 650 MG Q6P PRN 10/22 2145 AC 10/29 PO 1736 Atorvastatin Calcium 40 MG DAILY 10/22 2156 AC 10/29 PO 1158 Cilostazol 100 MG BID 10/22 2200 AC 10/29 PO 1158 Digoxin 0.125 MG 1700 10/23 1700 AC 10/29 PO 1727 Donepezil HCl 10 MG DAILY 10/23 1000 AC 10/29 PO 1158 Finasteride 5 MG DAILY 10/26 1138 AC 10/29 PO 1202 Losartan Potassium 100 MG DAILY 10/25 1000 AC 10/29 PO 1201 Metoprolol Succinate 100 MG DAILY 10/23 1000 DC 10/28 PO 1212 Metoprolol Tartrate 75 MG BID 10/29 1000 DC PO Metoprolol Tartrate 50 MG BID 10/29 1000 AC 10/29 PO 1200 Patient Medication 1 ED .STK-MED ONE 10/29 1351 [place] Teaching ED 10/29 1352 Polyethylene Glycol 17 GM DAILY 10/23 1000 AC 10/28 PO 1214 Rivaroxaban 20 MG 1700 10/26 1700 AC 10/29 PO 1727 Senna/Docusate Sodium 2 TAB DAILY 10/23 1000 AC 10/28 PO 1211 Tamsulosin HCl 0.4 MG DAILY 10/23 1000 AC 10/29 PO 1159 Last 24 Hrs of Lab/Onel Results Last 24 Hrs of Labs/Mics: Laboratory Tests 10/29/16 0634: Anion Gap 5, Estimated GFR > 60, BUN/Creatinine Ratio 21.4, PT 14.9 H, INR 1.42 H, CBC w Diff NO MAN DIFF REQ, RBC 3.83 L, MCV 93.7, MCH 31.9 H, RDW 13.7, MPV 7.8, Gran % 49.1, Lymphocytes % 41.0, Monocytes % 5.2, Eosinophils % 4.0, Basophils % 0.7, Absolute Granulocytes 4.4, Absolute Lymphocytes 3.6 H, Absolute Monocytes 0.5, Absolute Eosinophils 0.4, Absolute Basophils 0.1, PUBS MCHC 34.0 Assessment/Plan Assessment: Patient is a 80 year old [facility] male with PMH HTN, HLD, atrial fibrillation s/p PPM implantation in 2007, CAD s/p stenting, claudication secondary to peripheral vascular disease and Alzheimer's dementia (non-verbal at baseline) who was brought in to [place] via ambulance due to increased altered mental status. Several complaints on presentation include altered mental status, frequent falls over the last 15 days without head trauma, dark urine, right-sided preference with decreased mobility of the right lower extremity and history of syncopal spells that last 15-20 minutes. Progressive deconditioning with encephalopathy * Alzheimers dementia is gradually worsening which was more prononunced in the past 2 weeks, being noncommunicative. Patient does not have significant change in mentation compared to yesterday. Likely a chronic process. * His work up is so far negative, appaerently his general condition is declining. * His is more realistic about the condtion, and if patient condition declines, opting to choose STR placement. Elevated troponins in the setting of atrial fibrillation with PPM * ACS ruled out * Cardio consult with Dr. Waller, patient's medical staff coordinator appreciated * Resumed all home cardiac medications, including Xarelto 20 mg PO daily, losartan 50 mg PO daily, digozin 0.125 mg PO daily and lipitor 40 mg PO daily. * Patient has gross hematuria with Xarelto ordered. Risk of bleeding by anticoagulation compared to risk of stroke was discussed at length with family, attending and medical staff coordinator today. Family decided that he would be better on anticoagulation, given his high risk of having any stroke, compared to him having a fall and a bleeding risk while on anticoagulation. The fact that he was on our nursing facility where his ambulation is limited was taken into consideration as well. * ECHO doesn't reveal any acute changes, proBNP was high Dark urine with blood * BPH could be the most probable reason as evident with trabeculated bladder. * UA showed 25-50 RBCs, large hgb * CT abdomen & pelvis without IV constrast demonstrated asymmetric hydroureteronephrosis of the left kidney with no clear evidence of a distal obstructing mass or stone. The urinary bladder is diffusely thickened and demonstrates a trabeculated appearance consistent with pseudodiverticulosis in the setting of prostatic hypertrophy. * Continue patient on Xarelto, but watch for cathy hematuria, or blood clots being collected in the urine bag. In that case, the patient needs to be assessed and managed in the emergency department if he is discharged. * continue finasteride 5mg daily * Continue flomax 0.4 mg PO daily * Intermittent losses with sterile water for gross hematuria and clots ordered * Planning to discharge on indwelling hadley catheter. Syncope * Family reported this has been occuring for about 1 year * Possible arrhythmias, but less likely as has was monitored in telemetry before this. * Patient had an EEG 12/22/15 that showed no epileptiform activity (performed due to syncopal events as per family) * ECHO shows Abnormal septal motion consistent with pacemaker activation. EF >60 %. * PT evalated and recommended STR placement Atrial Fibrillation s/p PPM * Initially discontinued on xarelto secondary to dark urine - restarted as per cardio and urology recommendations. Hypokalemia * K 3.7 on admission without overt EKG changes, now better HTN, HLD, CAD s/p stenting * Monitor vital signs Q shift * His Blood pressure ihas been stable now after restarting his home meds PVD * Continue cilostazol 100 mg PO BID and lipitor. Alzheimer's * Continue donepezil 10 mg PO daily DNR/DNI Diet: Regular Mild pain pathway DVTP: Xarelto Problem List: 1. Dementia 2. Hypokalemia 3. Hematuria Pain Ratin Pain Location: - Cannot assess Pain Goal: Pain 4 or less Pain Plan: prn Tomorrow's Labs & Rationales: - Consulting Request: Consulting Specialty: Cardiology Consulting Physician: Dr. Waller Reason for Consult: Elevated troponin DI BAY,SUJATA 10/29/16 1537: Attending MD Review Statement Attending Statement Attending MD Statement: examined this patient, discuss w/resident/PA/SET UP MACHINIST, agreed w/resident/PA/SET UP MACHINIST, discussed with family, reviewed EMR data (avail), discussed with nursing, discussed with case mgmt, amended to note Attending Assessment/Plan: Patient seen and examined. Lying in bed and not in acute distress. present at the bedside. Afebrile and hemodynamically stable. Hematuria in urine bag is flaring up her reports of nursing staff. Urology service recommendations appreciated. Recommendations are for patient to be discharged with the Hadley catheter with manual flushes and follow-up with the urology service as an outpatient. Case was also discussed with the cardiology service. Due to his high risk of stroke recommendations are to continue anticoagulation therapy. is in agreement with this plan and is aware of patient's increased predisposition for bleeding particularly hematuria. Patient medically stable to be discharged today.
[2016-10-29 08:16] LABS: ABSOLUTE BASOPHIL COUNT 0.1 /CUMM (0.0-0.2); ABSOLUTE EOSINOPHIL COUNT 0.4 /CUMM (0.0-0.7); ABSOLUTE GRANULOCYTE CT 4.4 /CUMM (1.4-6.5); ABSOLUTE LYMPH COUNT 3.6 /CUMM (1.2-3.4); ABSOLUTE MONOCYTE COUNT 0.5 /CUMM (0.10-0.60); BASOPHIL % 0.7 % (0.0-2.0); GRANULOCYTE % 49.1 % (42.2-75.2); HEMATOCRIT 35.9 % (42-52); MEAN CORPUSCULAR HGB 31.9 PG (27.0-31.0); MEAN CORPUSCULAR VOLUME 93.7 FL (80.0-94.0); MEAN PLATELET VOLUME 7.8 FL (7.4-10.4); PLATELET COUNT 222 /CUMM (130-400); RBC DISTRIBUTION WIDTH 13.7 % (11.5-14.5); RED BLOOD CELL CT 3.83 /CUMM (4.70-6.10); WHITE BLOOD CELL COUNT 8.9 /CUMM (4.8-10.8)
[2016-10-29 08:21] LABS: PT 14.9 SEC (9.4-12.5)
[2016-10-29 15:44] VITALS: BP 140/70
[2016-10-29] MEDS ORDERED: METOPROLOL TART50 M1 PO (16:30)
[2016-10-29 17:59] VITALS: BP 156/78
== END 2016-10-29 18:20 | DRG 985 ==
LOC: ENRESERVDT → ENRESERVTM → ERH 17:05 → 1NO 20:26 → ERHI 20:26 → 1NO 20:26 → 2NB 20:26 → 1NO 22:02 → 2NB 10-27 19:25
PROVIDERS: Emergency Medicine; Internal Medicine; Internal Medicine Endocrinology, Diabetes & Metabolism; ADMIT Internal Medicine
PROC: 0T9B8ZZ Drainage of Bladder, Via Natural or Artificial Opening Endoscopic (ICD-10-PCS; principal; 2016-10-25)
PROC: 0V508ZZ Destruction of Prostate, Via Natural or Artificial Opening Endoscopic (ICD-10-PCS; principal; 2016-10-25)
DX: G93.40 Encephalopathy, unspecified (principal); F05 Delirium due to known physiological condition; I24.8 Other forms of acute ischemic heart disease; I48.91 Unspecified atrial fibrillation; G30.9 Alzheimer's disease, unspecified; R31.0 Gross hematuria; R31.9 Hematuria, unspecified; F02.80 Dementia in other diseases classified elsewhere, unspecified severity, without behavioral disturbance, psychotic disturbance, mood disturbance, and anxiety; E87.6 Hypokalemia; R55 Syncope and collapse; I10 Essential (primary) hypertension; E78.5 Hyperlipidemia, unspecified; Z95.0 Presence of cardiac pacemaker; I25.10 Atherosclerotic heart disease of native coronary artery without angina pectoris; Z95.5 Presence of coronary angioplasty implant and graft; I73.9 Peripheral vascular disease, unspecified; Z87.891 Personal history of nicotine dependence; Z91.81 History of falling; Z66 Do not resuscitate; Z85.118 Personal history of other malignant neoplasm of bronchus and lung; N40.0 Benign prostatic hyperplasia without lower urinary tract symptoms
CPT/HCPCS: 1NP; 2NBSP; 36415; 74176; 80307; 81001; 82436; 87086; 93005; 93010; 93306; 97162-GP; 97530-GO; 99291; G0480; J0360; J3490; J7042; J7508